=== PATIENT | female | born 2000 | race Caucasian/White ===

== ENCOUNTER → 2019-05-03 15:00 | Outpatient (BNVA) | payer MEDICAID, SELFPAY | PROVIDERS: PCP Social Worker Clinical; Visit Provider Obstetrics & Gynecology | DX: Z34.00 Encounter for supervision of normal first pregnancy, unspecified trimester | CPT/HCPCS: 80307; 84315; 85027; 86592; 86762; 86803; 86850; 86900; 87086; 87340 ==

== ENCOUNTER → 2019-05-06 13:32 | Outpatient (BNVA) | payer MEDICAID, SELFPAY | PROVIDERS: PCP Social Worker Clinical; Visit Provider Obstetrics & Gynecology | DX: O99.210 Obesity complicating pregnancy, unspecified trimester (principal) | CPT/HCPCS: 82950 ==

== ENCOUNTER → 2019-05-13 10:35 | Outpatient (BNVA) | payer MEDICAID, SELFPAY | PROVIDERS: PCP Family Medicine; Visit Provider Obstetrics & Gynecology | DX: Z34.92 Encounter for supervision of normal pregnancy, unspecified, second trimester; R73.09 Other abnormal glucose | CPT/HCPCS: 84315; 87491; 87591 ==

== ENCOUNTER → 2019-05-19 08:18 | Outpatient (BNVA) | payer MEDICAID, SELFPAY | PROVIDERS: PCP Family Medicine; Visit Provider Obstetrics & Gynecology | DX: Z34.90 Encounter for supervision of normal pregnancy, unspecified, unspecified trimester (principal); O99.210 Obesity complicating pregnancy, unspecified trimester | CPT/HCPCS: 82951; 82952 ==

== ENCOUNTER 2019-06-14 19:46 | Emergency (ER) | payer MEDICAID, SELFPAY | END 2019-06-14 19:58 | disposition left against medical advice (07) | PROVIDERS: Emergency Provider Nurse Practitioner Family; PCP Obstetrics & Gynecology | DX: O99.89 Other specified diseases and conditions complicating pregnancy, childbirth and the puerperium (principal); R10.2 Pelvic and perineal pain; Z3A.21 21 weeks gestation of pregnancy; Z53.21 Procedure and treatment not carried out due to patient leaving prior to being seen by health care provider | CPT/HCPCS: 99281 ==

== ENCOUNTER 2019-06-14 19:55 | Outpatient (CLI) | payer MEDICAID, SELFPAY ==
[2019-06-14 20:05] VITALS: RESP 20; TEMP 36.8
[2019-06-14 20:20] VITALS: BP 106/59; PULSE 98
[2019-06-14 21:08] LABS: Basophils % 0.4 %; Eosinophils # 0.1 10^3/uL (0.0-0.8); Hematocrit 31.2 % (37.0-47.0); Hemoglobin 10.1 g/dL (11.5-15.3); Lymphocytes # 2.3 10^3/uL (1.5-6.5); Lymphocytes % 23.4 %; Mean Corpuscular HGB Conc 32.4 g/dL (30.0-36.0); Mean Corpuscular Hemoglobin 28.6 pg (28.0-34.0); Mean Corpuscular Volume 88.4 fL (81-99); Mean Platelet Volume 10.2 fL (7.4-10.4); Monocytes # 0.8 10^3/uL (0.2-0.9); Monocytes % 8.1 %; Neutrophils # 6.4 10^3/uL (1.8-8.0); Neutrophils % 66.3 %; Nucleated Red Blood Cells % 0 %; Platelet Count 334 10^3/cmm (130-400); Red Blood Count 3.53 10^6/uL (4.1-5.3); Red Cell Distribution Width 13.2 % (12.1-15.1); White Blood Count 9.7 10^3/uL (4.5-13.0)
[2019-06-14 21:31] LABS: Anion Gap 16.6 (5-19); Blood Urea Nitrogen 7 mg/dL (6-20); Calcium 9.3 mg/dL (8.5-10.5); Carbon Dioxide 22 mmol/L (22-29); Chloride 99 mmol/L (98-107); Glomerular Filtration Rate 205.6 mL/min (90-130); Glucose 118 mg/dL (65-115); Osmolality Calculated 275 mOsm/kg (285-295); Potassium 3.6 mmol/L (3.5-5.1); Sodium 134 mmol/L (136-145)
[2019-06-14 21:44] LABS: Urine Color Yellow (Yellow); pH Urine 5 (5-7)
[2019-06-14 21:45] LABS: Bilirubin Urine 1+ (NEGATIVE); Blood Urine Neg (Negative); Glucose Urine UA Norm (Normal); Ketones Urine 1+ (Negative); Leukocyte Esterase Urine Negative (Negative); Nitrate Urine Negative (Negative); Protein Urine Neg (Negative); Specific Gravity, Urine 1.025 (1.005-1.030); Urine Appearance Hazy (CLEAR); Urobilinogen Urine 1 mg/dL (Negative)
[2019-06-14 21:46] LABS: Amorphous Sediment Urine 1+; Bacteria Urine 1+; Mucus Urine 1+; RBC Urine 0-4 /hpf (0-2)
[2019-06-14 21:47] LABS: Add Urine Culture? No
[2019-06-14 21:58] VITALS: BMI 42.7
[2019-06-14 22:01] VITALS: BP 116/56; PULSE 91
[2019-06-14] MEDS: diphenhydrAMINE 25 mg Capsule 50 MG PO (22:10)
[2019-06-14] MEDS: promethazine 25 mg Tablet PO (22:10)
[2019-06-14 22:30] VITALS: RESP 16; TEMP 36.8
== END 2019-06-14 22:15 | disposition home or self-care (01) ==
LOC: OPOB 20:05 → OBGYN 22:00 → OPOB 06-15 08:35
PROVIDERS: PCP Obstetrics & Gynecology; Visit Provider Obstetrics & Gynecology
DX: O26.899 Other specified pregnancy related conditions, unspecified trimester (principal); Z3A.00 Weeks of gestation of pregnancy not specified; R10.2 Pelvic and perineal pain
CPT/HCPCS: 36415; 80048; 81001; 83735; 85025; 87086; 99211; Q0169

== ENCOUNTER → 2019-06-17 13:08 | Outpatient (BNVA) | payer MEDICAID, SELFPAY | PROVIDERS: PCP Obstetrics & Gynecology; Visit Provider Obstetrics & Gynecology | DX: Z36.89 Encounter for other specified antenatal screening (principal); Z3A.22 22 weeks gestation of pregnancy | CPT/HCPCS: 76805 ==

== ENCOUNTER → 2019-06-20 12:59 | Outpatient (BNVA) | payer MEDICAID, SELFPAY | PROVIDERS: PCP Obstetrics & Gynecology; Visit Provider Obstetrics & Gynecology | DX: Z01.89 Encounter for other specified special examinations (principal) | CPT/HCPCS: 84315 ==

== ENCOUNTER → 2019-07-05 14:13 | Outpatient (BNVA) | payer MEDICAID, SELFPAY | PROVIDERS: PCP Obstetrics & Gynecology; Visit Provider Obstetrics & Gynecology | DX: O26.899 Other specified pregnancy related conditions, unspecified trimester (principal); R51 Headache | CPT/HCPCS: 82950; 84315 ==

== ENCOUNTER → 2019-07-19 08:12 | Outpatient (BNVA) | payer MEDICAID, SELFPAY | PROVIDERS: PCP Nurse Practitioner Family; Referring Provider Obstetrics & Gynecology; Visit Provider Specialist | DX: G43.711 Chronic migraine without aura, intractable, with status migrainosus (principal); O26.892 Other specified pregnancy related conditions, second trimester; Z3A.26 26 weeks gestation of pregnancy; Z87.891 Personal history of nicotine dependence | CPT/HCPCS: 99203 ==

== ENCOUNTER → 2019-08-09 14:51 | Outpatient (BNVA) | payer MEDICAID, SELFPAY | PROVIDERS: PCP Nurse Practitioner Family; Visit Provider Obstetrics & Gynecology | DX: Z34.00 Encounter for supervision of normal first pregnancy, unspecified trimester (principal) | CPT/HCPCS: 84315; 85027; 86787 ==

== ENCOUNTER 2019-09-16 09:17 | Observation (INO) | payer MEDICAID, SELFPAY ==
[2019-09-16 09:25] VITALS: BP 127/62; PULSE 105
[2019-09-16 09:32] VITALS: BMI 47.3
[2019-09-16 09:59] VITALS: BP 119/76; PULSE 88
[2019-09-16 10:29] VITALS: BP 123/68; PULSE 93
[2019-09-16 10:59] VITALS: BP 118/76; PULSE 90
[2019-09-16 11:33] VITALS: BP 118/76; PULSE 90
[2019-09-16 11:38] VITALS: BP 118/76; PULSE 90
== END 2019-09-16 11:25 | disposition home or self-care (01) ==
PROVIDERS: Admitting Provider Obstetrics & Gynecology; PCP Nurse Practitioner Family; Visit Provider Obstetrics & Gynecology
DX: O62.2 Other uterine inertia (principal); Z3A.00 Weeks of gestation of pregnancy not specified
CPT/HCPCS: 59025; 99211; G0378; G0379

== ENCOUNTER 2019-09-27 07:45 | Inpatient (IN) | payer MEDICAID, SELFPAY ==
[2019-09-27] VITALS (116 sets, daily range): BP systolic 0–170; BP diastolic 0–89; PULSE 72–107; RESP 16–18; TEMP 36.6–37.1; O2SAT 94–100; BMI 48.4
[2019-09-27] MEDS: dextrose 5%-lactated ringers 1,000 ML 500 ML IV (08:08)
[2019-09-27] MEDS: ampicillin 2,000 MG in sodium chloride 0.9% (plus) 50 ML 100 MG IV (08:08)
[2019-09-27] MEDS: betamethasone susp 6 mg/mL 5 mL 12 MG IM (08:09)
[2019-09-27 08:25] LABS: Basophils # 0.1 10^3/uL (0.0-0.1); Basophils % 0.5 %; Eosinophils # 0.1 10^3/uL (0.0-0.8); Eosinophils % 0.8 %; Hematocrit 35.6 % (37.0-47.0); Hemoglobin 11.4 g/dL (11.5-15.3); Lymphocytes # 2.5 10^3/uL (1.5-6.5); Lymphocytes % 26.3 %; Mean Corpuscular Volume 87.5 fL (81-99); Mean Platelet Volume 10.7 fL (7.4-10.4); Monocytes # 0.8 10^3/uL (0.2-0.9); Monocytes % 8.8 %; Neutrophils # 5.9 10^3/uL (1.8-8.0); Neutrophils % 62.3 %; Nucleated Red Blood Cells % 0 %; Platelet Count 272 10^3/cmm (130-400); Red Blood Count 4.07 10^6/uL (4.1-5.3); Red Cell Distribution Width 14.7 % (12.1-15.1); White Blood Count 9.4 10^3/uL (4.5-13.0)
[2019-09-27 10:42] LABS: Nitrazine Paper, PH Positive
--- NOTE | 2019-09-27 11:30 | PC.NURSE ---
pt requesting epidural. orders received, bolus started
[2019-09-27] MEDS: ampicillin 1,000 MG in sodium chloride 0.9% (plus) 50 ML 100 MG IV ×2 (11:45→16:01)
[2019-09-27] MEDS: lactated ringers 1,000 ML 999 ML IV ×3 (11:46→23:44)
--- NOTE | 2019-09-27 12:47 | ANES.PREANE2 ---
Pre-Anesthetic Assessment Pre-Anesthetic Assessment: Height/Weight: Height 1.57 m Weight 120.202 kg Temp Pulse Resp BP 98.8 F 76 18 0/0 09/27/19 11:37 09/27/19 12:12 09/27/19 11:37 09/27/19 12:41 Preop Diagnosis: labor pain Proposed Procedure: epidural Familial anesthetic complications: none Was Beta Rachael taken within 24 hours: Yes Social: Social History: No alcohol and No tobacco Exam: Pre-Anes Outpt Exam: alert, oriented x 3, clear to auscultation bilaterally and regular rate & rhythm Airway: Submandibular: WNL Cervical ROM: WNL MP: 1 Dentition: Other Pulmonary: Pulmonary: None reported CV/HEM: CV/HEM: Anemia : : None reported Hepatic: Hepatic: None reported GI: GI: None reported Metabolic: Metabolic: None reported Musc/skel: Musc/skel: None reported Neuropsych: Neuropsych: Anxiety and Depression Anesthetic Plan: ASA status: 2 Anesthesia: Eval. for regional block and Regional (specify below) Risk of > 500 ml blood loss (7ml/kg in children): No Meds/Allergies Current Medications: Current Medications Generic Name Dose Route Start Last Admin Trade Name Freq PRN Reason Stop Dose Admin Ampicillin Sodium 1,000 mg/ 50 mls @ 100 mls/ hr 09/27/19 11:34 09/27/19 11:45 Sodium Chloride IV 100 mls/hr Q4H DANY Administration Protocol Ampicillin Sodium 2,000 mg/ 50 mls @ 100 mls/ hr 09/27/19 07:30 09/27/19 08:38 Sodium Chloride IV Infused ONCE DANY Infusion Protocol Dextrose/Lactated Ringer's 1,000 mls @ 125 m ls/hr 09/27/19 07:30 09/27/19 11:46 Dextrose 5%-Lact ated Ringers IV Infused .Q8H DANY Infusion PFSH Anesthesia PFSH: Medical History Borderline personality disorder Chronic migraine Currently on propranolol for suppression. She follows with Dr. Patino Major depressive disorder, recurrent severe without psychotic features Not on any medication during the . She follows up with therapy every 1 to 2 weeks with Maribell Menjivar from [facility] Surgical History History of tonsillectomy Family History Unknown Breast cancer Grandmother Hyperlipidemia Maternal Hypertension Maternal Diabetes Maternal Mother Diabetes Grandfather Diabetes Maternal Stroke Maternal Other CAD (coronary artery disease) Cancer Social History (Updated 09/15/19 @ 08:26 by Diane Rivas LPN) Smoking and tobacco status: former smoker Quit status (tobacco): has quit using tobacco Year quit tobacco: 04/2019 Alcohol intake: never History of recent travel: No Female Reproductive History: : 1 Data Anesthesia CBC & Chem 7: 09/27/19 07:40 Other Labs: Laboratory Results - last 48 hr 09/27/19 07:40 WBC 9.4 RBC 4.07 L Hgb 11.4 L Hct 35.6 L MCV 87.5 MCH 28.0 MCHC 32.0 RDW 14.7 Plt Count 272 MPV 10.7 H Neut % (Auto) 62.3 Lymph % (Auto) 26.3 [place] % (Auto) 8.8 Eos % (Auto) 0.8 Baso % (Auto) 0.5 Neut # (Auto) 5.9 Lymph # (Auto) 2.5 [place] # (Auto) 0.8 Eos # (Auto) 0.1 Baso # (Auto) 0.1 Nucleated RBC % (auto) 0 Nucleated RBCs # 0.0 Cardiac Studies: No Data to Display
--- NOTE | 2019-09-27 13:15 | P.ANES_ITS ---
Anesthesia Procedures Procedure/Date: 09/27/19 epidural Procedure Narrative: epidural complete, bolus given, epidural pump initiated with APPLE PEELER OPERATOR education given, vitals taken during procedure using OBIX system and satisfactory throughout, patient admits to decrease pain, report of procedure to OB RN Epidural: Time Out Performed: Yes Consents Signed: Procedure Consent Consent: requested by attending/covering physician, from patient, risks and benefits reviewed and patient agrees to proceed Lumbar Level: L3-L4 Epidural position: sitting Epidural procedure: sterile prep of area, 1% lidocaine to numb the area (3 mL), 18 g needle, negative for paresthesia passed, neg for paresthesia, test dose given, 1.5% xylocaine 1:200k epi (5 mL), 0.2% Ropivacaine bolus ml (5 mL), placed PCEA, no systemic response, sterile dressing applied, L.U.D. no apparent complications and 0.2% Ropiavacaine @ mls/hr (13 mL/hr)
[2019-09-27] MEDS: dextrose 5%-lactated ringers 1,000 ML 125 ML IV (14:06)
[2019-09-27] MEDS: ondansetron 2 mg/ML SDV 2 mL 4 MG IVP (19:24)
[2019-09-27] MEDS: oxytocin 30 UNIT/500 ML BAG IV (19:56)
[2019-09-27] MEDS: ampicillin 1,000 MG in sodium chloride 0.9% (plus) 50 ML 50 MG IV (19:56)
--- NOTE | 2019-09-27 20:54 | PM.OBGYHP ---
Providers/Chief Complaint Admitting Physician: En Sterling MD Primary Care Provider: Chante Pedraza NP Chief Complaint: OB TRIAGE HPI CAREER SERVICES OFFICER History of Present Illness Rose Quintanilla is a 18 year old female 1, para 0 with an uncertain LMP and an EDC of 10/22/2019 based on 15-week ultrasound, which places her at 36-3/7 weeks gestation. Patient presented to labor and delivery today with complaint of leaking of fluid. She was confirmed as being ruptured. She was dominick on her own and slowly progressed through the day. By 16:30 she was 9 cm dilated. She has made no further cervical change despite starting Pitocin augmentation. As result, section was recommended. Patient without complaints at this time. She states she is uncomfortable with contractions. She denied shortness of breath or chest pains. She reports baby has been moving. care is been mainly provided by Dr. Ramirez. Labs 05/03/2019 Blood type: A+ Antibody screen : negative Intake CBC: WBC 11.4 Hgb 12.9 Hct 39.9 MCV 87.7 Platelet 375 Cystic fibrosis: Declined Rubella: Immune Hepatitis B surface antigen: nonreactive Hepatitis C antibody: nonreactive RPR: nonreactive HIV: Declined Drug screen: negative Urine culture: 20,000-30,000 CFU, mixed organisms. Early GTT: 142 05/13/2019 Gonorrhea:negative Chlamydia: negative Pap smear: NA Quad screen: Declined. 05/19/2019 3-hour GTT: 83/148/148/81 (normal) 06/14/2019 CBC: WBC 9.7, Hgb 10.1, Hct 31.2, MCV 88.4, Plt 334. Urine culture: 10-20,000 CFU, mixed organisms. 07/05/2019 GCT: 136 08/09/2019 28 week CBC: WBC 13.0 Hgb 10.7 Hct 33.1 MCV 89.5 Platelet 387 Tesfaye-Zost IGG: <135, negative antibody not detected [Date] GBS: OB Ultrasound Unsure LMP 1. 05/06/2019 ---> 15-6/7 WG ---> EDC 10/22/2019 Performed at [facility]. Breech. FHR 164 bpm. Anterior placenta without previa. Visually normal amniotic fluid volume. PRIVATE EQUITY ANALYST 5.3 cm. 2. 06/17/2019 ---> 22-0/7 WG ---> EDC 10/21/2019. EFW 1 lb 2 oz (500 g) 64%. Performed at [facility]. Consistent with dates. Normal anatomic survey EXCEPT for poor visualization of face and cerebellum. Female. Cephalic. FHR 159 bpm. Anterior fundal placenta without previa. Grade 1. Visually normal amniotic fluid volume. Cervix 4.3 cm. Review of Systems Const: Denies: fever(s) or chills ENMT: Denies: throat pain or nasal congestion Card: Denies: chest pain, palpitations or lightheadedness Resp: Denies: dyspnea, productive cough, non-productive cough or wheezing GI: Denies: abdominal pain, nausea, vomiting, diarrhea or constipation Neuro: Denies: headache(s) or dizziness Kana/Lymph: Denies: easy bruising or easy bleeding Medications/Allergies Home Medications Medication Instructions Recorded Confirmed Last Taken Type Multi 1 tab PO DAILY 06/14/19 09/27/19 09/26/19 12:00 History loratadine 10 mg tablet 10 mg PO DAILY 06/20/19 09/16/19 09/26/19 12:00 History ferrous sulfate 325 mg (65 mg 325 mg PO DAILY #90 tab 08/16/19 09/27/19 09/26/19 12:00 Rx iron) tablet sertraline 50 mg tablet 50 mg PO DAILY #30 tab 09/16/19 09/27/19 09/26/19 12:00 Rx propranolol 10 mg PO BID 09/27/19 09/27/19 09/26/19 22:00 History Allergies Allergy/AdvReac Type Severity Reaction Status Date / Time No Known Allergies Allergy Verified 09/15/19 08:24 PFSH CAREER SERVICES OFFICER PFSH: Medical History Borderline personality disorder Chronic migraine Currently on propranolol for suppression. She follows with Dr. Patino Major depressive disorder, recurrent severe without psychotic features Not on any medication during the . She follows up with therapy every 1 to 2 weeks with Maribell Menjivar from [facility] Surgical History History of tonsillectomy Family History Unknown Breast cancer Grandmother Hyperlipidemia Maternal Hypertension Maternal Diabetes Maternal Mother Diabetes Grandfather Diabetes Maternal Stroke Maternal Other CAD (coronary artery disease) Cancer Social History Smoking and tobacco status: former smoker Quit status (tobacco): has quit using tobacco Year quit tobacco: 04/2019 Alcohol intake: never Substance/Drug Use: never History of recent travel: No Other Female Reproductive History: Hx Age of Menarche: 8 Duration of menses: other (7-10 days) Cycle Length: irregular Menstrual flow: normal/abnormal: normal History History History 1 Term 0 Miscarriages/Ectopic 0 0 Living Children 0 Care WARD Calculator Estimated Delivery Date Method Current WG Current Estimate 10/22/19 Ultrasound #2 36w 3d Other Estimates 10/30/19 LMP (Uncertain) 35w 2d 10/30/19 Ultrasound #1 35w 2d Expected Delivery Route/Plan Vaginal delivery Specific Issues/Plans Obesity Chronic migraine headaches on propranolol for suppression-sees Carey Recurrent severe depression-not on any medication-sees therapist Vitals/I&O/Wt Last Vital Signs Temp 98.4 F 09/27/19 19:10 Pulse 91 09/27/19 20:40 Resp 16 09/27/19 17:32 BP 121/50 09/27/19 20:40 Pulse Ox 100 09/27/19 13:53 09/27/19 09/27/19 09/27/19 06:59 14:59 22:59 Intake Total 2929.167 / 2929.167 738.567 / 3667.734 Balance 2929.167 / 2929.167 738.567 / 3667.734 Weight last 48 hrs Weight 265 lb Physical Exam Const: COMMON NORMALS: no acute distress, average body habitus, alert and well nourished GENERAL APPEARANCE: well developed ORIENTATION/CONSCIOUSNESS: Yes oriented to person, Yes oriented to place and Yes oriented to time Resp: COMMON NORMALS: normal respiratory effort and clear to auscultation bilaterally AUSCULTATION: clear to auscultation bilaterally Cardio: COMMON NORMALS: regular rate, regular rhythm, No gallops present (Cardio), No murmurs present (Cardio) and No rub (Cardio) RATE: regular rate RHYTHM: regular rhythm GI: COMMON NORMALS: Soft to palpation, non-tender, No hepatosplenomegaly present and no masses AUSCULTATION: Yes normoactive bowel sounds PALPATION: Yes Soft to palpation, Yes No hepatosplenomegaly present and No Hernia present : EXTERNAL FEMALE EXAM: No Hernia present OTHER: External genitalia: Normal in appearance with no lesions seen. Anus/perineum: No perineal lesions noted. Urethral meatus: Normal in size and location with no lesions or prolapse noted Urethra: No palpable masses noted. Bladder: No palpable masses noted. Vagina: No palpable masses. Cervix: 9 cm with a david completely surrounding the head. Molding and It of the head present. Head is at a -1 station. Neuro: SENSORIUM/ORIENTATION: Yes alert, Yes oriented to person, Yes oriented to place and Yes oriented to time Psych: COMMON NORMALS: normal affect MOOD & AFFECT: Yes euthymic mood Skin: COMMON NORMALS: no rashes or lesions noted GENERAL SKIN EXAM: no rashes or lesions noted Urinary Catheter Management^: Diaz: Cath Placed During This Visit: yes Reason for Continuing Indwelling Catheter: Acute Urinary Retention or Obstruction Urinary Catheter Date of Insertion: 09/27/19 Urinary Catheter Time of Insertion: 13:30 Data : 09/27/19 07:40 A&P Assessment and plan (1) Arrested active phase of labor: Patient has been at 9 cm dilation for approximately 5 hours. Pitocin augmentation was started approximately an hour to an hour and a half ago and she has made no change. At this point I do not feel that continued use of Pitocin will lead to the cervix progressing to complete dilation. As result I was recommending proceeding to a primary section. Risks of the surgery were discussed with the patient including bleeding to the point of needing a blood transfusion, infection, and injury to intra-abdominal organs including bowel, bladder, blood vessels, nerves, and ureters. Questions were answered. Patient is in agreement with the plan to proceed to section. Status: Acute (2) premature rupture of membranes: Patient presented this morning with ruptured membranes. She reported that her water broke at approximately 05: 40. She was confirmed as being ruptured on arrival. She has been on ampicillin for group B strep prophylaxis due to unknown GBS status. Status: Acute (3) labor in third trimester: Patient reported that contractions started shortly after rupturing membranes. Due to the water being broke and her being 36+ weeks gestation, she was allowed to proceed with labor. Due to prematurity, she had been given betamethasone. Status: Acute Attestations Medical Necessity Statement*: Patient is in labor with premature rupture of membranes at 36 weeks gestation. She will be delivering during this hospitalization. Coding Level of Care Code Acute Cement Truck Driver for Chg Fwd Diagnoses Arrested active phase of labor O62.1 premature rupture of membranes O42.919 labor in third trimester O60.03
[2019-09-27] MEDS: famotidine 20 mg/2 mL INJ IVP (21:04)
[2019-09-27] MEDS: metoclopramide 5 mg/mL SDV 2 mL 10 MG IVP (21:04)
[2019-09-27] MEDS: citric acid-sodium citrate 30 mL UDC PO (21:05)
--- NOTE | 2019-09-27 22:27 | PM.OP ---
Operative Report Date of procedure: September 27, 2019 Pre-op Diagnosis: 1. Arrest of dilation 2. premature rupture of membranes at 36-3/7 weeks gestation 3. labor at 36-3/7 weeks gestation 4. Mental disorder (depression) complicating in third trimester 5. Obesity complicating in third trimester Post-op Diagnosis: 1. Arrest of dilation - delivered 2. premature rupture membranes - delivered 3. labor at 36-3/7 weeks gestation - delivered 4. Mental disorder (depression) complicating - delivered 5. Obesity complicating - delivered 6. Viable female infant Procedure Done: Primary low transverse section Specimens removed/disposition: None Surgeon: Willy Lockwood Lower School Music Teacher: None Anesthesia: Epidural Estimated blood loss (mL): 1,000 IV fluids (mL): 1,100 Complications: None Findings: 1. Viable female cephalic presentation, weighing 7 lbs 6 oz (3345 g) with a length of 21-1/2 inches and Apgars of 9 at 1 minute and 9 at 5 minutes. 2. Three-vessel cord with no loops of nuchal cord noted. 3. Normal-appearing placenta. Condition: stable Brief History: Patient is a 18-year-old white female 1, para 0 with an uncertain LMP and EDC of 11/01/2019 based on 15-week ultrasound, which placed her at 36-3/7 weeks gestation. She presented to labor and delivery this morning with complaint of ruptured membranes. She stated contractions recurred shortly afterwards. She was found to be grossly ruptured. She was dominick on her own and progressed through the day. By around 16:30, she was 9 cm dilated. By approximately 2 hours later she had made no further cervical change and Pitocin augmentation was started. By approximately 20:30 she had made no further progress and decision was made to proceed to a section. She had been on ampicillin due to unknown GBS status. Procedure: Patient was taken to the operating room where epidural anesthesia was further dosed. She was prepped and draped in the usual sterile fashion in a dorsal supine position with a leftward tilt. Diaz catheter and sequential compression boots had been placed prior to starting the case. A Pfannenstiel skin incision was made with a knife and carried down to the underlying fascia with the knife. Fascia was incised in the midline with the knife and extended laterally with Bay scissors. Superior aspect of the fascia was grasped with Clair clamps, elevated, and sharply and bluntly dissected. The inferior aspect of the fascia was grasped with Clair clamps, elevated, and sharply and bluntly dissected. The rectus muscles were in the midline. Peritoneum was sharply entered. Peritoneal incision was extended both superiorly and inferiorly with good visualization of the bladder. Bladder blade was inserted. The vesicouterine peritoneum was tented up and sharply entered. It was extended laterally and the bladder flap was created digitally. Bladder blade was reinserted. A transverse incision was made with the knife in the lower uterine segment. Clear fluid was obtained upon entry into the uterine cavity. The infant's head was delivered and no nuchal cords were noted. The rest of the delivered atraumatically. Nose and mouth were suctioned with bulb suction. Cord was clamped and cut and the was handed off to Dr. Dangelo and the waiting nurses. Cord blood was obtained. Placenta was delivered via uterine massage. Patient received 20 units of Pitocin in the IV fluids. The uterus was exteriorized, but incision was unable to be adequately visualized for repair due to maternal obesity. Uterus was returned to the abdomen. Uterus was cleared of clots and debris. The uterine incision was closed in a running locking fashion using 0 Vicryl suture. The incision was imbricated using 0 Vicryl suture in a horizontal mattress fashion. The incision was inspected and noted to be hemostatic. The uterine incision was irrigated and noted to be hemostatic. The gutters were cleared of clots and blood. The rectus muscles and peritoneum were reapproximated in the midline using interrupted stitches of 2-0 Vicryl suture. The muscle layer was irrigated and noted to be hemostatic. The fascia was reapproximated using 0 Vicryl suture in a running fashion. The subcutaneous layer was irrigated and brought to hemostasis using electrocautery. It was reapproximated using 3-0 plain suture in an interrupted fashion. Skin was reapproximated using 4-0 Vicryl suture in a subcuticular fashion. Steri-Strips were applied. Patient tolerated the procedures well. Sponge, needle, and instrument counts were correct. DRAINS: Diaz catheter POSTOPERATIVE STATUS: The patient was left to recover in satisfactory condition
[2019-09-28] VITALS (14 sets, daily range): BP systolic 105–139; BP diastolic 59–87; PULSE 84–101; RESP 16–18; TEMP 36.7–37; O2SAT 92–98
--- NOTE | 2019-09-28 00:48 | PC.NURSE ---
Patient in OR at this time.
[2019-09-28] MEDS: prenatal vitamin Capsule 1 CAP PO (08:19)
[2019-09-28] MEDS: docusate sodium 100 mg Capsule PO ×2 (08:19→19:24)
[2019-09-28] MEDS: ferrous sulfate EC 325 mg Tablet PO ×2 (08:19→20:44)
[2019-09-28] MEDS: ketorolac 30 mg/mL INJ IVP (08:19)
[2019-09-28] MEDS: sertraline 50 mg Tablet PO (08:19)
[2019-09-28] MEDS: propranolol 20 mg Tablet 10 MG PO ×2 (09:09→19:27)
--- NOTE | 2019-09-28 09:54 | PC.NURSE ---
Fernanda Glover from [facility] called to check up on pt and see how the pt was doing and is sending a worker from [facility] for a courtesy visit, please call Fernanda Glover from discharge. [phone]
--- NOTE | 2019-09-28 10:01 | PM.PN ---
Subjective Subjective: Interval history: Reports doing well at this time. States pain has been well controlled. Denies lightheadedness or dizziness with sitting up in chair. Denies shortness of breath or chest pain. Denies nausea or vomiting. Reports passing flatus. State bleeding has decreased. Vitals/I&O/Wt Last Vital Signs Temp 98.2 F 09/28/19 06:30 Pulse 101 H 09/28/19 06:30 Resp 18 09/28/19 06:30 BP 134/85 09/28/19 06:30 Pulse Ox 95 09/28/19 06:30 09/27/19 09/28/19 09/28/19 22:59 06:59 14:59 Intake Total 738.567 / 3667.734 1100 / 4767.734 Output Total 600 / 600 2250 / 2850 250 / 250 Balance 138.567 / 3067.734 -1150 / 1917.734 -250 / -250 Weight last 48 hrs Weight 265 lb Physical Exam Const: COMMON NORMALS: no acute distress, average body habitus, alert and well nourished GENERAL APPEARANCE: well developed ORIENTATION/CONSCIOUSNESS: Yes oriented to person, Yes oriented to place and Yes oriented to time Resp: COMMON NORMALS: normal respiratory effort and clear to auscultation bilaterally AUSCULTATION: clear to auscultation bilaterally Cardio: COMMON NORMALS: regular rate, regular rhythm, No gallops present (Cardio) and No rub (Cardio) RATE: regular rate RHYTHM: regular rhythm GI: COMMON NORMALS: Soft to palpation, No hepatosplenomegaly present and no masses (except for tender uterus, approx 2 fingerbreaths below umbilicus) AUSCULTATION: Yes normoactive bowel sounds PALPATION: Yes Soft to palpation, Yes Tenderness to palpation present (GI) (lower abdomen), Yes No hepatosplenomegaly present and No Hernia present : EXTERNAL FEMALE EXAM: No Hernia present Extremity: COMMON NORMALS: no calf tenderness Neuro: SENSORIUM/ORIENTATION: Yes alert, Yes oriented to person, Yes oriented to place and Yes oriented to time Psych: COMMON NORMALS: normal affect MOOD & AFFECT: Yes euthymic mood Skin: COMMON NORMALS: no rashes or lesions noted GENERAL SKIN EXAM: no rashes or lesions noted Urinary Catheter Management^: Diaz: Cath Placed During This Visit: yes Reason for Continuing Indwelling Catheter: Accurate Measurement of Urinary Output in Critically Ill Patients Urinary Catheter Date of Insertion: 09/27/19 Urinary Catheter Time of Insertion: 13:30 Data : 09/27/19 07:40 A&P Assessment and plan (1) labor in third trimester with delivery: Status: Acute Qualifiers: Fetus number: single or unspecified fetus Qualified Code(s): O60.14X0 - labor third trimester with delivery third trimester, not applicable or unspecified (2) premature rupture of membranes (PPROM) delivered, current hospitalization: Status: Acute (3) Mental disorder in , delivered: Status: Acute Additional A&P Information Postoperative day 1, status post section Patient doing well overall. Increase acitivty today. May shower. Advance to regular diet. Pain management discussed with patient as Duromorph wears off later today. Attestations Medical Necessity Statement*: Postoperative day 1 after section Coding Level of Care Code Acute Surfacing Machine Operator for Chg Fwd Diagnoses labor in third trimester with delivery O60.14X0 Fetus number: single or unspecified fetus premature rupture of membranes (PPROM) delivered, current hospitalization O42.919 Mental disorder in , delivered O99.344
[2019-09-28 12:41] LABS: Hematocrit 31.7 % (37.0-47.0); Hemoglobin 10.1 g/dL (11.5-15.3); Mean Corpuscular HGB Conc 31.9 g/dL (30.0-36.0); Mean Corpuscular Hemoglobin 28.3 pg (28.0-34.0); Mean Corpuscular Volume 88.8 fL (81-99); Mean Platelet Volume 10.3 fL (7.4-10.4); Platelet Count 262 10^3/cmm (130-400); Red Blood Count 3.57 10^6/uL (4.1-5.3); Red Cell Distribution Width 14.8 % (12.1-15.1); White Blood Count 12.8 10^3/uL (4.5-13.0)
--- NOTE | 2019-09-28 13:04 | ANE.PACU2 ---
Inpatient post-anesthesia follow up: Airway intact: Yes Vital signs: Temperature 98.2 F Pulse Rate 101 Respiratory Rate 18 Blood Pressure 134/85 Pulse Oximetry 95 Oxygen Delivery Me thod Room Air Oxygen Flow Rate Fraction of Inspir ed Oxygen Hydration adequate: No Nausea and vomiting: Yes Pain level: 2 Mental status: Baseline Additional Comments: hasnt' been up and walking, no erythema or signs of infection at site, denies headache
[2019-09-29] MEDS: acetaminophen 325 mg Tablet 650 MG PO (05:58)
--- NOTE | 2019-09-29 07:24 | PC.NURSE ---
This mom has decided to feed formula with a bottle and does not wish to breastfeed at this time.
--- NOTE | 2019-09-29 08:16 | PM.DCS ---
Discharge Providers Date of Admission: 09/27/19 07:45 Date of Discharge: September 29, 2019 Attending Provider at Admission: En Sterling MD Attending Provider at Discharge: Willy Lockwood MD Primary Care Provider: Chante Pedraza NP Diagnoses at Discharge Discharge Diagnosis (1) labor in third trimester with delivery: Status: Acute Qualifiers: Fetus number: single or unspecified fetus Qualified Code(s): O60.14X0 - labor third trimester with delivery third trimester, not applicable or unspecified (2) premature rupture of membranes (PPROM) delivered, current hospitalization: Status: Acute (3) Mental disorder in , delivered: Status: Acute (4) Anemia during , delivered, current hospitalization: Status: Acute Reason for Visit Reason for Visit: OB TRIAGE Hospital Course Hospital Course: Patient is a 18-year-old white female 1, para 0 with uncertain LMP and an EDC of 11/01/2019 based on a 15-week ultrasound, which placed her at 36-3/7 weeks gestation. She presented to labor and delivery with a complaint of rupture of membranes. Contractions had started shortly after rupture membranes. She was found to be grossly ruptured and was dominick with regularly. She continued to contract and progressed through the day. By 16: 30 she was 9 cm dilated but made no further cervical change. Pitocin augmentation was started with still no further change. As a result she was taken for section. She had been treated with ampicillin for GBS prophylaxis due to unknown GBS status. A primary section was performed with the delivery of a viable female weighing 7 lbs 6 oz (3345 g) with a length of 21-1/2 inches and Apgars of 9 at 1 minute and 9 at 5 minutes. Following delivery, patient did well. She received Duramorph in her epidural for pain relief. POSTOPERATIVE DAY 1 She reported doing well. Her pain was well controlled with the Duramorph. She was sitting up in a chair is without lightheadedness or dizziness. She denies shortness of breath or chest pains. She denied nausea or vomiting was tolerating liquids. She had started passing flatus. Her diet was advanced and activities were increased. She was started on oral pain medications later on in the day. POSTOPERATIVE DAY 2 Denies any problems or concerns. Reports pain has been well controlled with ibuprofen and Tylenol. Reports tolerating a regular diet without nausea or vomiting. Denies lightheadedness or dizziness with ambulation. Denies shortness or breath or chest pains. Denies problems with urination. States bleeding has slowed. Physical Exam: See below Plan Patient was anemic during . H/H dropped expected amount after delivery. Continue iron at home. Patient to continue propranolol for headache suppression. Patient to continue Zoloft for treatment of depression. Discharge to home. Discharge instructions discussed with patient. control discussed with patient and she is undecided on type. Discussed no sex until after 6 weeks after delivery. Discussed that it is not uncommon for depression symptoms to worsen after delivery. Follow-up appointments in 2 and 6 weeks. Keep appointment with [facility]. Physical Exam Const: COMMON NORMALS: no acute distress, average body habitus, alert and well nourished GENERAL APPEARANCE: well developed ORIENTATION/CONSCIOUSNESS: Yes oriented to person, Yes oriented to place and Yes oriented to time Resp: COMMON NORMALS: normal respiratory effort and clear to auscultation bilaterally AUSCULTATION: clear to auscultation bilaterally Cardio: COMMON NORMALS: regular rate, regular rhythm, No gallops present (Cardio) and No rub (Cardio) RATE: regular rate RHYTHM: regular rhythm HEART SOUNDS: Murmur heart sound present (2 out of 6 systolic murmur) systolic GI: COMMON NORMALS: Soft to palpation, No hepatosplenomegaly present and no masses (except for palpable uterus, approximately 2 fingerbreaths below umbilicus) INSPECTION: Yes incision (clean, dry, intact with steri-strips) AUSCULTATION: Yes normoactive bowel sounds PALPATION: Yes Soft to palpation, Yes Tenderness to palpation present (GI) (lower abdominal), Yes No hepatosplenomegaly present and No Hernia present : EXTERNAL FEMALE EXAM: No Hernia present Extremity: COMMON NORMALS: no calf tenderness GENERAL: Yes edema (1+ lower extremity edema) Neuro: SENSORIUM/ORIENTATION: Yes alert, Yes oriented to person, Yes oriented to place and Yes oriented to time Psych: COMMON NORMALS: normal affect MOOD & AFFECT: Yes euthymic mood Skin: COMMON NORMALS: no rashes or lesions noted GENERAL SKIN EXAM: no rashes or lesions noted Urinary Catheter Management^: Diaz: Cath Placed During This Visit: yes Reason for Continuing Indwelling Catheter: Accurate Measurement of Urinary Output in Critically Ill Patients Urinary Catheter Date of Insertion: 09/27/19 Urinary Catheter Time of Insertion: 13:30 Discharge Data Data Completed and Pending: Labs from last 24 hours 09/28/19 12:32 WBC 12.8 RBC 3.57 L Hgb 10.1 L Hct 31.7 L MCV 88.8 MCH 28.3 MCHC 31.9 RDW 14.8 Plt Count 262 MPV 10.3 Vitals: Last Vital Signs Temp 98.1 F 09/28/19 20:52 Pulse 84 09/28/19 20:52 Resp 18 09/28/19 20:52 BP 105/69 09/28/19 20:52 Pulse Ox 96 09/28/19 20:52 Discharge Plan Discharge Patient Disposition: Home, Self-Care Condition: Stable Prescriptions: New hydrocodone-acetaminophen 5-325 mg Tablet 1 - 2 tab PO Q6H PRN (Reason: Moderate To Severe Pain) Qty: 15 RF: 0 ibuprofen 800 mg Tablet 800 mg PO TID PRN (Reason: pain) Qty: 40 RF: 0 Continued loratadine [Claritin] 10 mg tablet 10 mg PO DAILY RF: 0 ferrous sulfate 325 mg (65 mg iron) tablet 325 mg PO DAILY Qty: 90 RF: 1 sertraline [Zoloft] 50 mg tablet 50 mg PO DAILY Qty: 30 RF: 2 Multi 27-800 mg-mcg Tablet 1 tab PO DAILY RF: 0 propranolol 10 mg Tablet 10 mg PO BID RF: 0 Discharge Orders: Discharge Order (Routine); Ordered 09/29/19 Ordered By: Willy Lockwood Referrals: Jhoan Ramirez MD [Physician] - 11/10/19 2:45 pm (* Your 6 week follow up appointment is 11/10/2019 at 2:45pm. ) [facility], [Staff Physician] - (Keep scheduled appointment) Willy Lockwood MD [Physician] - 10/12/19 10:00 am (* Your 2 week post appointment is 10/12/2019 at 10:00am. ) Discharge Diet: Regular Discharge Activity: Limit activity as instructed Patient Instructions: Hydrocodone/Acetaminophen (By mouth), Ibuprofen (By mouth), OB [facility], OB Discharge Report, OB Food/Drug Interaction Guide, OB Home Care, OB [facility] Parent Packet, Abnormal Bleeding, Depression Discharge Date/Time: 09/29/19 12:35 Discharge Attestations Time Spent in Discharge Care*: less than 30 min Quality Metrics Clinical Quality Measures During this hospital stay, did patient experience: None Coding Level of Care Code Acute Section [employer] Property Manager for Chg Fwd Exam Detailed Diagnoses labor in third trimester with delivery O60.14X0 Fetus number: single or unspecified fetus premature rupture of membranes (PPROM) delivered, current hospitalization O42.919 Mental disorder in , delivered O99.344 Anemia during , delivered, current hospitalization O99.02
[2019-09-29] MEDS: prenatal vitamin Capsule 1 CAP PO (09:02)
[2019-09-29] MEDS: docusate sodium 100 mg Capsule PO (09:02)
[2019-09-29] MEDS: sertraline 50 mg Tablet PO (09:03)
[2019-09-29] MEDS: ferrous sulfate EC 325 mg Tablet PO (09:03)
[2019-09-29] MEDS: propranolol 20 mg Tablet 10 MG PO (09:07)
[2019-09-29 09:13] VITALS: BP 125/78; PULSE 99; RESP 16; TEMP 36.7; O2SAT 99
--- NOTE | 2019-09-29 12:20 | PC.NURSE ---
Call to DFS worker Fernanda to report pt being discharged, Fernanda reports pt called her already and let h er no. is to go home with mom and Fernanda will follow up at home.
[2019-09-29 12:30] VITALS: BP 122/76; PULSE 89; RESP 16; TEMP 36.6; O2SAT 100
== END 2019-09-29 12:35 | disposition home or self-care (01) | DRG 787 ==
LOC: OPOB 09-28 09:42
PROVIDERS: Obstetrics & Gynecology; Admitting Provider Obstetrics & Gynecology; PCP Nurse Practitioner Family; Visit Provider Obstetrics & Gynecology
PROC: 10D00Z1 Extraction of Products of Conception, Low, Open Approach (ICD-10-PCS; CPT 59514; principal; 2019-09-27 21:00)
DX: O60.14X0 Preterm labor third trimester with preterm delivery third trimester, not applicable or unspecified (principal); F33.2 Major depressive disorder, recurrent severe without psychotic features; O62.1 Secondary uterine inertia; O99.344 Other mental disorders complicating childbirth; O99.214 Obesity complicating childbirth; O99.02 Anemia complicating childbirth; D64.9 Anemia, unspecified; Z3A.36 36 weeks gestation of pregnancy; Z37.0 Single live birth; O75.89 Other specified complications of labor and delivery; F60.3 Borderline personality disorder; G43.709 Chronic migraine without aura, not intractable, without status migrainosus
CPT/HCPCS: 12345; 36415; 51702; 59025; 59409; 83986; 85025; 85027; 96372; 96374; 96375; 98960; 99211; J0290; J0690; J0702; J1885; J2001; J2274; J2405; J2590; J2765; J2795; J3010; J3490; J7030

== ENCOUNTER → 2019-10-13 10:39 | Outpatient (BNVA) | payer MEDICAID, SELFPAY | PROVIDERS: PCP Nurse Practitioner Family; Visit Provider Psychiatry & Neurology Psychiatry | DX: F33.42 Major depressive disorder, recurrent, in full remission (principal) | CPT/HCPCS: 99204 ==

== ENCOUNTER → 2019-12-12 11:52 | Outpatient (BNVA) | payer MEDICAID, SELFPAY | PROVIDERS: PCP Nurse Practitioner Family; Visit Provider Registered Nurse | DX: Z03.89 Encounter for observation for other suspected diseases and conditions ruled out (principal); F33.42 Major depressive disorder, recurrent, in full remission | CPT/HCPCS: 80053; 80061; 82306; 83036; 83540; 83721; 83735; 84443 ==

== ENCOUNTER 2019-12-23 20:00 | Outpatient (CLI) | payer MEDICAID, SELFPAY | END 2019-12-23 20:01 | disposition home or self-care (01) | LOC: SLEEP 12-27 08:24 | PROVIDERS: PCP Nurse Practitioner Family; Visit Provider Registered Nurse | DX: G47.10 Hypersomnia, unspecified (principal) | CPT/HCPCS: 95810 ==

== ENCOUNTER → 2020-03-12 16:28 | Outpatient (BNVA) | payer MEDICAID, SELFPAY | PROVIDERS: PCP Nurse Practitioner Family; Visit Provider Nurse Practitioner Family | DX: R39.9 Unspecified symptoms and signs involving the genitourinary system (principal); Z32.00 Encounter for pregnancy test, result unknown | CPT/HCPCS: 81000; 81025 ==

== ENCOUNTER 2020-04-21 20:24 | Emergency (ER) | payer MEDICAID, SELFPAY ==
[2020-04-21 20:28] VITALS: BP 148/88; PULSE 90; RESP 18; TEMP 36.8; O2SAT 100; BMI 42.0
--- NOTE | 2020-04-21 20:38 | W.ED.PREGNAN ---
HPI - General: Chief complaint: Vaginal Bleeding Stated complaint: possible miscarriage x 7 weeks Time Seen by Provider: 04/21/20 20:34 History of Present Illness: HPI Narrative: Patient is a 19-year-old female comes to the ED with vaginal bleeding. She has been having vaginal bleeding and cramping that started almost 7 days ago. Patient says she was seen at [facility] on April 19 for vaginal bleeding. I told her her hCG quant was 6000 and they performed an ultrasound with transvaginal and did not see any gestational sac in the uterus and no ectopic seen. She was told to come back in a couple days to reevaluate and check hCG levels. Patient says she went back to [place] earlier today and hCG levels were 1000. They then discharged her and told her to follow-up with her OB doctor. She comes here to the ED tonight because she was confused about her discharge from [facility] ED. She says a couple days ago she was having more intense cramping and bleeding and over the past couple days couple days bleeding and cramping is improving. Today in the ED she has minimal cramping and says currently she is bleeding through 1 to 2 pads in a day. She feels like her bleeding is slowing down significantly and cramping pain has decreased significantly as well. Patient was diagnosed with a UTI several days ago at [facility] and is currently taking nitrofurantoin to treat UTI. Date of Last Menstrual Period: 02/12/20 Associated symptoms: Deny abdominal pain, dysuria, headache(s), nausea or vomiting Review of Systems Const: Denies: fever(s), chills or fatigue Eyes: Denies: change in vision or eye discomfort ENMT: Denies: throat pain, odynophagia, nasal discharge or nasal congestion Card: Denies: chest pain, palpitations, edema, swelling of feet/ankles, dyspnea on exertion or orthopnea Resp: Denies: dyspnea, productive cough or non-productive cough GI: Denies: abdominal pain, nausea, vomiting, diarrhea, constipation or hematochezia : Reports: vaginal bleeding and pelvic pain (cramps); Denies: flank pain, dysuria or hematuria Musc: Denies: neck pain, back pain or extremity swelling Skin/Breast: Denies: rash or new lesions Neuro: Denies: headache(s), numbness in extremities or weakness in extremities PFSH ED PFSH: Medical History Borderline personality disorder Chronic migraine Currently on propranolol for suppression. She follows with Dr. Patino Major depressive disorder, recurrent severe without psychotic features Not on any medication during the . She follows up with therapy every 1 to 2 weeks with Maribell Menjivar from [facility] clinic Surgical History History of section, low transverse (09/27/19) PLTCS. Dx: Arrest of dilation. Performed by Dr. Lockwood at [facility]. History of tonsillectomy Family History Unknown Breast cancer Grandmother Hyperlipidemia Maternal Hypertension Maternal Diabetes Maternal Mother Diabetes Grandfather Diabetes Maternal Stroke Maternal Other CAD (coronary artery disease) Cancer Social History Smoking and tobacco status: former smoker Quit status (tobacco): has quit using tobacco Year quit tobacco: 04/2019 Alcohol intake: never History of recent travel: No Current gender identity: Female Female Reproductive History: Date of last menstrual period: 02/12/20 Physical Exam Narrative: EXAM NARRATIVE: Patient is a healthy and happy 19-year-old female that does not appear in any acute distress or pain. She is sitting comfortably on exam bed when entered the room. Const: COMMON NORMALS: no acute distress, patient oriented x3, healthy appearing and alert GENERAL APPEARANCE: cooperative and comfortable NUTRITIONAL APPEARANCE: overweight HENMT: COMMON NORMALS: normocephalic HEAD & SCALP: normocephalic MOUTH: Normal oral and palatal mucosa present THROAT: posterior oropharynx normal and uvula midline Neck/C-Spine: COMMON NORMALS: supple GENERAL: Yes normal visual inspection Resp: COMMON NORMALS: normal respiratory effort, No retractions, No use of accessory muscles and clear to auscultation bilaterally AUSCULTATION: clear to auscultation bilaterally Cardio: COMMON NORMALS: regular rate, regular rhythm, S1 normal heart sound present, S2 normal heart sound present, No gallops present (Cardio), No clicks present (Cardio), No murmurs present (Cardio) and Peripheral pulses 2+ throughout RATE: regular rate RHYTHM: regular rhythm HEART SOUNDS: S1 normal heart sound present and S2 normal heart sound present PERIPHERAL PULSES: Peripheral pulses 2+ throughout GI: COMMON NORMALS: Normal to inspection, nondistended, normoactive bowel sounds present, Soft to palpation, non-tender and no masses PALPATION: Yes Soft to palpation : COMMON NORMALS: Yes no CVA tenderness BLADDER/KIDNEY EXAM: Yes no CVA tenderness Back/Pelvis: COMMON NORMALS: no CVA tenderness Extremity: COMMON NORMALS: normal to inspection Neuro: COMMON NORMALS: patient oriented x3 and moves all extremities SENSORIUM/ORIENTATION: Yes alert Skin: GENERAL SKIN EXAM: dry skin Course Vital Signs: Vital signs: Vital Signs Temperature 98.2 F 04/21/20 20:28 Pulse Rate 90 04/21/20 20:28 Respiratory Rate 18 04/21/20 20:28 Blood Pressure 148/88 04/21/20 20:28 Pulse Oximetry 100 04/21/20 20:28 MDM - OB/Uterine Contractions MDM Narrative: Medical decision making narrative: Patient is a 19-year-old female comes to the ED with vaginal bleeding. Patient said vaginal bleeding started almost a week ago. She was seen at [facility] emergency department several days ago for same complaint and says they did an hCG quant that was about 6000 and performed an ultrasound with transvaginal and no gestational sac identified and no ectopic seen. She was told to come back to the ED couple days later to check hCG levels. Earlier today she went to [facility] emergency department and they checked her hCG level and it was 1000, so they discharged patient and told her to follow-up with PCP. She was also diagnosed with a UTI at [facility] on is currently on nitrofurantoin to treat UTI. Patient was confused about her discharge from [facility] and unsure about care plan, so she came here to get evaluated. Patient says her bleeding and cramping have improved greatly over the past week and she now has only going through 1-2 pads a day. Patient appears in no acute distress upon exam and has no abdominal tenderness. CBC and CMP were unremarkable. hCG quant 863.4. Vitals stable with pulse 90 and temp 98.2. Due to patient still having some mild but decreased bleeding and no other symptoms of a systemic infection or increasing abdominal pain, I placed order with case management for patient to get outpatient ultrasound of the pelvis to check for any retained contents. And [facility] outpatient procedure request form was filled out and put in case management file. Patient was discharged and told that case management will be contacting them in the next several days to set up an appointment for outpatient ultrasound. She was instructed to return to ED if she is having any worsening pain, bleeding, fever, nausea or vomiting. Patient understood and agreed with plan. Lab Data: Attestation: I reviewed the patient's lab results. Labs: Lab Results 04/21/20 04/21/20 Range/Units 21:11 21:11 WBC 10.4 (4.5-13.0) 10^3/ uL RBC 4.59 (4.1-5.3) 10^6/u L Hgb 12.3 (11.5-15.3) g/dL Hct 39.2 (37.0-47.0) % MCV 85.4 (81-99) fL MCH 26.8 L (28.0-34.0) pg MCHC 31.4 (30.0-36.0) g/dL RDW 14.1 (12.1-15.1) % Plt Count 455 H (130-400) 10^3/c mm MPV 9.9 (7.4-10.4) fL Neut % (Auto) 47.5 % Lymph % (Auto) 42.4 % [place] % (Auto) 7.4 % Eos % (Auto) 1.9 % Baso % (Auto) 0.5 % Neut # (Auto) 4.96 (1.8-8.0) 10^3/u L Lymph # (Auto) 4.4 (1.5-6.5) 10^3/u L [place] # (Auto) 0.8 (0.2-0.9) 10^3/u L Eos # (Auto) 0.2 (0.0-0.8) 10^3/u L Baso # (Auto) 0.1 (0.0-0.1) 10^3/u L Nucleated RBC % (a uto) 0 % Nucleated RBCs # 0.0 /100WBC Sodium 137 (136-145) mmol/L Potassium 4.0 (3.5-5.1) mmol/L Chloride 103 (98-107) mmol/L Carbon Dioxide 22 (22-29) mmol/L Anion Gap 16.0 (5-19) BUN 10 (6-20) mg/dL Creatinine 0.5 (0.5-0.9) mg/dL GFR Calculation 157.3 H (90-130) mL/min Glucose 101 (65-115) mg/dL Calculated Osmolal ity 283 L (285-295) mOsm/k g Calcium 9.7 (8.5-10.5) mg/dL Total Bilirubin 0.2 (0.15-1.2) mg/dL AST 11 (0-32) U/L ALT 13 (0-33) U/L Alkaline Phosphata se 85 (35-105) IU/L Total Protein 7.4 (6.6-8.7) g/dL Albumin 4.4 (3.5-5.2) g/dL Globulin 3.0 (1.3-4.6) g/dL Ser , [place] i-Qnt 863.40 mIU/mL Discharge Plan Discharge Patient Disposition: Home Clinical Impression: Vaginal bleeding before 22 weeks gestation Condition: Stable Prescriptions: No Action nitrofurantoin macrocrystal 100 mg capsule 100 mg PO BID 7 Days Qty: 14 RF: 0 risperidone [Risperdal] 0.5 mg tablet 0.5 mg PO DAILY Qty: 30 RF: 0 cholecalciferol (vitamin D3) [D3-50 Cholecalciferol] 1,250 mcg (50,000 unit) capsule 1,250 mcg PO .weekly 90 Days Qty: 13 RF: 1 Discharge Orders: Discharge ED (Routine); Ordered 04/21/20 Ordered By: Greg Anna Referrals: Chante Pedraza FNP [Primary Care Provider] - Discharge Diet: Regular Discharge Activity: Resume usual activity Patient Instructions: Spontaneous Miscarriage (ED) Activity Restrictions/Additional Instructions: Follow-up with medical provider as directed. [facility] scheduling should contact you in the next several days to set up an appoint for an ultrasound. Continue taking all home medications as prescribed. Return to the ER or your medical provider if condition worsens, increased bleeding, increased pain, nausea/vomiting or fever. Please read and understand discharge instructions. If any questions, please ask. Coding Level of Care Code ED [employer] Manager for Peggy Fwd Exam Comprehensive
[2020-04-21 21:17] LABS: Basophils # 0.1 10^3/uL (0.0-0.1); Basophils % 0.5 %; Eosinophils # 0.2 10^3/uL (0.0-0.8); Eosinophils % 1.9 %; Hematocrit 39.2 % (37.0-47.0); Hemoglobin 12.3 g/dL (11.5-15.3); Lymphocytes # 4.4 10^3/uL (1.5-6.5); Lymphocytes % 42.4 %; Mean Corpuscular HGB Conc 31.4 g/dL (30.0-36.0); Mean Corpuscular Hemoglobin 26.8 pg (28.0-34.0); Mean Corpuscular Volume 85.4 fL (81-99); Mean Platelet Volume 9.9 fL (7.4-10.4); Monocytes # 0.8 10^3/uL (0.2-0.9); Monocytes % 7.4 %; Neutrophils # 4.96 10^3/uL (1.8-8.0); Neutrophils % 47.5 %; Nucleated Red Blood Cells % 0 %; Platelet Count 455 10^3/cmm (130-400); Red Blood Count 4.59 10^6/uL (4.1-5.3); Red Cell Distribution Width 14.1 % (12.1-15.1); White Blood Count 10.4 10^3/uL (4.5-13.0)
[2020-04-21 21:48] LABS: Alanine Aminotransferase 13 U/L (0-33); Albumin Level 4.4 g/dL (3.5-5.2); Alkaline Phosphatase 85 IU/L (35-105); Aspartate Amino Transferase 11 U/L (0-32); Blood Urea Nitrogen 10 mg/dL (6-20); Calcium 9.7 mg/dL (8.5-10.5); Carbon Dioxide 22 mmol/L (22-29); Chloride 103 mmol/L (98-107); Glomerular Filtration Rate 157.3 mL/min (90-130); Glucose 101 mg/dL (65-115); Osmolality Calculated 283 mOsm/kg (285-295); Sodium 137 mmol/L (136-145); Total Bilirubin 0.2 mg/dL (0.15-1.2); Total Protein 7.4 g/dL (6.6-8.7)
[2020-04-21] MEDS: HYDROcodone-acetaminophen 5-325 mg Tablet 1 TAB PO (22:07)
--- NOTE | 2020-04-23 16:11 | DCPLANNER ---
marketing strategy manager had message to schedule an out patient pelvic ultrasound. marketing strategy manager faxed order to centralized scheduling, will call for appointment information.
--- NOTE | 2020-04-26 14:26 | DCPLANNER ---
Patient has a follow up appointment scheduled for Thursday, May 04, 2020 at 12:45. Centralized scheduling will call patient with appointment information.
--- NOTE | 2020-05-22 07:59 | DCPLANNER ---
Patient had an out patient ultrasound scheduled - patient did attend appointment.
== END 2020-04-21 22:29 | disposition home or self-care (01) ==
PROVIDERS: Emergency Provider Physician Assistant; PCP Nurse Practitioner Family
DX: O20.9 Hemorrhage in early pregnancy, unspecified (principal); Z3A.00 Weeks of gestation of pregnancy not specified; Z87.891 Personal history of nicotine dependence
CPT/HCPCS: 12345; 80053; 84702; 85025; 99281; 99283

== ENCOUNTER 2020-05-03 10:48 | Outpatient (CLI) | payer MEDICAID, SELFPAY ==
--- NOTE | 2020-05-03 10:54 | US_ITS ---
WS: [id number] ULTRASOUND PELVIS TECHNIQUE: Transabdominal and transvaginal. ULTRASOUND PELVIS TECHNIQUE: Transabdominal. CLINICAL INFORMATION: CHECKED FOR RETAINED PRODUCTS LMP: : No. COMPARISON: None. FINDINGS: Uterus Orientation: Anteverted. Size: 8.3 cm x 5.5 cm x 3.6 cm. Masses: None. Cervix: 3.4 cm. Endometrium: Normal. Endometrium thickness: 0.8 cm. Adnexa: Normal. Right ovary size: 3.5 cm x 1.9 cm x 3.2 cm. Right ovary volume: 10.9 ccm3. Left ovary size: 2.8 cm x 2.3 cm x 2.7 cm. Left ovary volume: 8.9 ccm3 Free fluid: None. Other findings: None. US/US pelvic with transvaginal IMPRESSION: No evidence of retained conception products
== END 2020-05-03 10:49 | disposition home or self-care (01) ==
PROVIDERS: PCP Nurse Practitioner Family; Visit Provider Physician Assistant
DX: Z03.823 Encounter for observation for suspected inserted (injected) foreign body ruled out (principal); X58.XXXA Exposure to other specified factors, initial encounter
CPT/HCPCS: 76830; 76856

== ENCOUNTER → 2020-07-23 10:32 | Outpatient (BNVA) | payer MEDICAID, SELFPAY | PROVIDERS: PCP Nurse Practitioner Family; Visit Provider Nurse Practitioner Family | DX: Z00.00 Encounter for general adult medical examination without abnormal findings (principal); N92.6 Irregular menstruation, unspecified | CPT/HCPCS: 81025 ==

== ENCOUNTER → 2020-09-20 14:42 | Outpatient (BNVA) | payer MEDICAID, SELFPAY | PROVIDERS: PCP Nurse Practitioner Family; Visit Provider Registered Nurse | DX: F33.42 Major depressive disorder, recurrent, in full remission (principal) | CPT/HCPCS: 36415; 80053; 80061; 82306; 83036 ==

== ENCOUNTER → 2020-11-21 14:40 | Outpatient (BNVA) | payer MEDICAID, SELFPAY | PROVIDERS: PCP Nurse Practitioner Family; Visit Provider Registered Nurse | DX: F33.42 Major depressive disorder, recurrent, in full remission (principal); F60.3 Borderline personality disorder | CPT/HCPCS: 82652 ==

== ENCOUNTER → 2021-01-28 12:58 | Outpatient (BNVA) | payer MEDICAID, SELFPAY ==
[2020-12-04 16:35] VITALS: BP 145/86; BMI 42.2
== END ==
PROVIDERS: PCP Nurse Practitioner Family; Visit Provider Counselor Professional
DX: F33.2 Major depressive disorder, recurrent severe without psychotic features (principal); F60.3 Borderline personality disorder
CPT/HCPCS: 90832

== ENCOUNTER → 2021-03-07 14:14 | Outpatient (BNVA) | payer MEDICAID, SELFPAY ==
[2020-12-04 16:35] VITALS: BP 145/86; BMI 42.2
== END ==
PROVIDERS: PCP Nurse Practitioner Family; Referring Provider Nurse Practitioner Family; Visit Provider Specialist
DX: G43.709 Chronic migraine without aura, not intractable, without status migrainosus (principal); F17.210 Nicotine dependence, cigarettes, uncomplicated; F17.290 Nicotine dependence, other tobacco product, uncomplicated; Z3A.01 Less than 8 weeks gestation of pregnancy
CPT/HCPCS: 99214; 99215

== ENCOUNTER 2021-10-15 17:50 | Outpatient (CLI) | payer MEDICAID, SELFPAY ==
[2020-12-04 16:35] VITALS: BP 145/86; BMI 42.2
[2021-10-15] VITALS (7 sets, daily range): BP systolic 103–127; BP diastolic 53–66; PULSE 81–100; RESP 16–18; TEMP 36.6; BMI 47.8
[2021-10-15 18:45] LABS: Bilirubin Urine Neg (Negative); Blood Urine Neg (Negative); Glucose Urine UA Norm (Normal); Ketones Urine Negative (Negative); Leukocyte Esterase Urine Negative (Negative); Nitrate Urine Negative (Negative); Protein Urine Neg (Negative); Urine Appearance Clear (CLEAR); Urine Color Yellow (Yellow); Urobilinogen Urine Norm (Negative); pH Urine 6 (5-7)
[2021-10-15 18:53] LABS: Add Urine Culture? No; Bacteria Urine TRACE /hpf; RBC Urine 0-4 /hpf (0-2); Squamous Epithelial Cell Urine 0-4 /hpf (0-5); WBC Urine 0-4 /hpf (0-5)
[2021-10-15] MEDS: acetaminophen 500 mg Tablet 1000 MG PO (19:05)
== END 2021-10-15 20:03 | disposition home or self-care (01) ==
LOC: OPOB 17:59 → OBGYN 18:00
PROVIDERS: PCP Nurse Practitioner Family; Visit Provider Obstetrics & Gynecology
DX: O26.899 Other specified pregnancy related conditions, unspecified trimester (principal); Z3A.00 Weeks of gestation of pregnancy not specified; R10.9 Unspecified abdominal pain; M54.9 Dorsalgia, unspecified
CPT/HCPCS: 81001; 99211

== ENCOUNTER 2021-11-19 11:32 | Outpatient (CLI) | payer MEDICAID, SELFPAY ==
[2020-12-04 16:35] VITALS: BP 145/86; BMI 42.2
[2021-11-19] VITALS (15 sets, daily range): BP systolic 97–164; BP diastolic 49–72; PULSE 81–114; RESP 16; TEMP 36.8; BMI 47.6
[2021-11-19 12:18] LABS: Actim Prom Positive
[2021-11-19 12:24] LABS: Bilirubin Urine Neg (Negative); Glucose Urine UA Norm (Normal); Ketones Urine Negative (Negative); Nitrate Urine Negative (Negative); Protein Urine Neg (Negative); Urine Appearance Clear (CLEAR); Urine Color Yellow (Yellow); pH Urine 7 (5-7)
[2021-11-19 12:25] LABS: Add Urine Culture? No; Bacteria Urine TRACE /hpf; Blood Urine Trace (Negative); Leukocyte Esterase Urine Negative (Negative); Mucus Urine TRACE /hpf; RBC Urine 0-4 /hpf (0-2); Squamous Epithelial Cell Urine 0-4 /hpf (0-5); Urobilinogen Urine Norm (Negative); WBC Urine 0-4 /hpf (0-5)
--- NOTE | 2021-11-19 13:57 | US_ITS ---
WS: [id number] ULTRASOUND OB FOCUSED HISTORY: Possible ROM, FEDE check COMPARISON: None available. Single intrauterine gestation in cephalic position. Cervix is closed at 5 cm. Placenta is anterior wi th no previa or abruption. heart rate at 150 BPM. Amniotic fluid index: 17.6 cm which is above the 50th percentile. Largest vertical pocket of amniotic fluid is 6.1 cm. US/US OB limited [id number] IMPRESSION: Normal amniotic fluid index.
--- NOTE | 2021-11-19 19:43 | PM.MISC ---
Miscellaneous Note Note: The patient presented to labor and delivery triage due to concern for leakage of fluid on the morning of 11/19/2021. She noted that she felt a gush of fluid and a small amount of trickling afterwards. She had no further leakage following this. She had minimal spotting and so presented to labor and delivery triage for further evaluation. She did note that she had intercourse the night before. Upon exam the patient had a positive active problem. She was however 27 weeks gestation. To confirm this, a nitrazine test was done which was negative. A sterile spec exam did not show pooling in the vaginal vault. Her cervix was visually closed without blood coming from the cervical os. A fern test was done by myself and was found to be negative. An ultrasound was done to check the FEDE and was noted to be 17.6. I had a lengthy discussion with the patient and her significant other regarding the test results. We talked about how the actim PROM was positive, however there is a possibility of false positive with her only being 27 weeks and the test technically being recommended for use after 29 weeks and with the other tests all showing negative. We discussed the possibility of a small, high leak and that if she was ruptured there would be risk for infection. With the other tests coming back negative, I feel that it is safe for her to return home as she is having a few sporadic contractions, however nothing significant in nature. I did offer a transfer to [place] for further evaluation. They declined for now. I gave her precautions that if she has further leakage, fever, worsening abdominal pain or contractions, that these may all be signs that she has indeed had spontaneous rupture of membranes and that she should be evaluated right away. She verbalized understanding and wished to be discharged home. All questions were answered. The patient and her significant other are in agreement with the current plan of care.
== END 2021-11-19 15:11 | disposition home or self-care (01) ==
LOC: OPOB 11:36 → OBGYN 11:37
PROVIDERS: PCP Nurse Practitioner Family; Visit Provider Family Medicine
DX: O46.90 Antepartum hemorrhage, unspecified, unspecified trimester (principal); Z3A.00 Weeks of gestation of pregnancy not specified
CPT/HCPCS: 59025; 76815; 81001; 83986; 84112; 99211

== ENCOUNTER → 2021-11-28 12:00 | Outpatient (BNVA) | payer MEDICAID, SELFPAY ==
[2020-12-04 16:35] VITALS: BP 145/86; BMI 42.2
== END ==
PROVIDERS: PCP Nurse Practitioner Family; Visit Provider Registered Nurse
DX: F31.81 Bipolar II disorder (principal); F33.2 Major depressive disorder, recurrent severe without psychotic features; Z79.899 Other long term (current) drug therapy
CPT/HCPCS: 80053; 80061; 82306; 83036; 85025

== ENCOUNTER 2021-12-30 09:03 | Outpatient (CLI) | payer MEDICAID, SELFPAY ==
[2020-12-04 16:35] VITALS: BP 145/86; BMI 42.2
[2021-12-30] VITALS (7 sets, daily range): BP systolic 111–132; BP diastolic 55–74; PULSE 100–118; RESP 15; BMI 47.8
[2021-12-30] MEDS: metroNIDAZOLE 500 MG Tablet 2000 MG PO (10:39)
== END 2021-12-30 10:55 | disposition home or self-care (01) ==
LOC: OPOB 09:14 → OBGYN 09:15
PROVIDERS: Absent Provider Family Medicine; Family Provider Family Medicine; PCP Nurse Practitioner Family; Visit Provider Family Medicine
DX: O26.893 Other specified pregnancy related conditions, third trimester (principal); N89.8 Other specified noninflammatory disorders of vagina; Z3A.33 33 weeks gestation of pregnancy
CPT/HCPCS: 59025; 83986; 87210; 99211

== ENCOUNTER 2022-01-06 09:22 | Outpatient (CLI) | payer MEDICAID, SELFPAY ==
[2020-12-04 16:35] VITALS: BP 145/86; BMI 42.2
[2022-01-06 09:30] VITALS: BMI 47.8
[2022-01-06 09:37] VITALS: BP 117/68; PULSE 116
[2022-01-06 10:01] VITALS: RESP 17; TEMP 36.2
[2022-01-06 10:10] VITALS: BP 117/68; PULSE 116
== END 2022-01-06 10:10 | disposition home or self-care (01) ==
LOC: OPOB 09:22 → OBGYN 09:23
PROVIDERS: Family Provider Family Medicine; PCP Nurse Practitioner Family; Visit Provider Family Medicine
DX: O26.893 Other specified pregnancy related conditions, third trimester (principal); R10.9 Unspecified abdominal pain; Z3A.34 34 weeks gestation of pregnancy
CPT/HCPCS: 59025; 99211

== ENCOUNTER 2022-01-07 10:20 | Outpatient (CLI) | payer MEDICAID, SELFPAY ==
[2020-12-04 16:35] VITALS: BP 145/86; BMI 42.2
[2022-01-07] VITALS (13 sets, daily range): BP systolic 108–132; BP diastolic 57–71; PULSE 77–111; RESP 17–18; TEMP 36.2–36.7; BMI 47.9
[2022-01-07] MEDS: sodium chloride 0.9% 1,000 ML 999 ML IV ×2 (11:20→12:59)
[2022-01-07] MEDS: ondansetron 2 mg/ML SDV 2 mL 4 MG IVP (11:21)
[2022-01-07 11:24] LABS: Bacteria Urine 2+ /hpf; Bilirubin Urine Neg (Negative); Blood Urine 2+ (Negative); Glucose Urine UA Norm (Normal); Ketones Urine 1+ (Negative); Leukocyte Esterase Urine 2+ (Negative); Nitrate Urine Negative (Negative); Protein Urine Neg (Negative); Specific Gravity, Urine 1.025 (1.005-1.030); Squamous Epithelial Cell Urine TOO NUMEROUS TO CNT /hpf (0-5); Urine Appearance Cloudy (CLEAR); Urine Color Yellow (Yellow); Urobilinogen Urine Neg (Negative); WBC Urine 15-25 /hpf (0-5); pH Urine 6 (5-7)
[2022-01-07 11:25] LABS: Add Urine Culture? No
[2022-01-07 14:13] LABS: Amorphous Sediment Urine 1+ /hpf; Bilirubin Urine Neg (Negative); Blood Urine Neg (Negative); Glucose Urine UA Norm (Normal); Ketones Urine Negative (Negative); Leukocyte Esterase Urine 1+ (Negative); Mucus Urine 1+ /hpf; Nitrate Urine Negative (Negative); Protein Urine Neg (Negative); RBC Urine 0-4 /hpf (0-2); Specific Gravity, Urine 1.025 (1.005-1.030); Urine Appearance Hazy (CLEAR); Urine Color Yellow (Yellow); Urobilinogen Urine 1 mg/dL (Negative); pH Urine 6 (5-7)
[2022-01-07 14:14] LABS: Add Urine Culture? Yes; Bacteria Urine 2+ /hpf
== END 2022-01-07 14:18 | disposition home or self-care (01) ==
LOC: OPOB 10:28 → OBGYN 10:29
PROVIDERS: Family Provider Family Medicine; PCP Nurse Practitioner Family; Visit Provider Family Medicine
DX: O26.893 Other specified pregnancy related conditions, third trimester (principal); K92.0 Hematemesis; Z3A.34 34 weeks gestation of pregnancy
CPT/HCPCS: 59025; 81001; 87086; 87210; 96374; 99211; J2405; J7030

== ENCOUNTER 2022-01-11 12:50 | Outpatient (CLI) | payer MEDICAID, SELFPAY ==
[2020-12-04 16:35] VITALS: BP 145/86; BMI 42.2
[2022-01-11] VITALS (11 sets, daily range): BP systolic 109–131; BP diastolic 61–81; PULSE 93–110; RESP 16; BMI 47.0
--- NOTE | 2022-01-11 13:24 | PC.NURSE ---
1324 Dr. Talavera notified of SVE, FHT, CTX pattern, patient c/o leaking fluid. Orders received for ACTIMPROM 1428 Dr. Talavera notified of ACTIMPROM result. Orders received for transfer. notified he would have to see patient on floor and have transfer summary documented. MD enroute to hospital. 1442 Dr. Talavera notified of SVE. Orders received to continue with transfer. MD states to call transportation to have en route to hospital. MD states ground ambulance is fine. [address] Talavera to notify of ambulance enroute. 1505 This RN requested orders from MD. Orders received for betamethasone 12mg IM 1509 This RN requested orders for terbuteline 0.25 ml subcut. 1534 MD to room to evaluate patient. 1544 Patient off monitors discharged with [facility]. RADAMES RN
[2022-01-11 13:48] LABS: Nitrazine Paper, PH Negative
[2022-01-11 14:15] LABS: Actim Prom Positive
--- NOTE | 2022-01-11 15:33 | P.TS_ITS ---
Transfer Summary Providers Date of Admission: 01/11/2022 Date of Discharge/Transfer: 01/11/22 Attending Provider at Transfer: Nathaniel Talavera MD Primary Care Provider: TANMAY Nuñez Transfer Plans: Anticipated date of transfer: 01/11/22 . Reason for Visit Reason for Visit Leaking Fluid Brief History: This is a 21-year-old at 34w5d that presents with leakage of fluid. Hospital Course Hospital Course Patient was evaluated for possible rupture membranes and was found to be positive. Did start developing contractions and did have a slight change in her cervical dilation from 1 cm to 2 cm after arrival. The patient is at 34 weeks 5 days the patient is considered too high risk to pain and deliver at this facility. Decision was made to transfer to [facility]. Was called and excepted. 1 dose of betamethasone was given. Terbutaline was also given to help with slow contractions for transfer. Patient is to be transferred by ground ambulance. Physical Exam Const: COMMON NORMALS: no acute distress and alert Chest: COMMONS NORMALS: normal inspection of the chest Resp: COMMON NORMALS: normal respiratory effort Extremity: GENERAL: Yes normal exam except as noted Neuro: SENSORIUM/ORIENTATION: Yes alert Psych: COMMON NORMALS: mental status grossly normal TS Data Studies Completed and Pending Labs from last 24 hours 01/11/22 13:49 Insulin-like GF I Positive Laboratory Last Values Insulin-like GF I Positive 01/11/22 13:49 Recent Clincial Data Last Vital Signs Pulse 98 01/11/22 14:59 BP 116/68 01/11/22 14:59 Vital Signs Pulse BP 01/11/22 14:59 98 116/68 01/11/22 14:50 110 H 119/81 01/11/22 14:30 96 131/68 01/11/22 14:16 110 H 115/66 01/11/22 14:00 99 123/67 01/11/22 13:45 109 H 125/72 01/11/22 13:29 93 109/64 01/11/22 13:16 109 H 113/61 Vitals Last Vital Signs Pulse 98 01/11/22 14:59 BP 116/68 01/11/22 14:59 TS Medications Medications Discontinued Medications Betamethasone Acet/Betameth SodPhos (Betamethasone Susp 6 Mg/Ml 5 Ml) 12 mg IM Q24H DANY Stop: 01/11/22 15:31 Terbutaline Sulfate (Terbutaline 1 Mg/Ml Inj) 0.25 mg SUBCUT ONCE ONE Stop: 01/11/22 15:23 Allergies No Known Allergies Allergy (Verified 11/19/21 12:20) Home Medications galcanezumab-gnlm 120 mg/mL subcutaneous pen injector (Emgality Pen) 120 mg SUBCUT .once a month 11/28/21 [History Confirmed 12/26/21] sertraline 50 mg tablet (Zoloft) 50 mg PO DAILY #30 tabs 11/28/21 [Rx Confirmed 12/26/21] famotidine 20 mg tablet (Pepcid) 20 mg PO BID 12/24/21 [History Confirmed 12/26/21] Discharge Plan Discharge Patient Disposition: Home Prescriptions: No Action Emgality Pen 120 mg/mL pen injector 120 mg SUBCUT .once a month sertraline [Zoloft] 50 mg tablet 50 mg PO DAILY Qty: 30 1RF famotidine [Pepcid] 20 mg tablet 20 mg PO BID Diet: As Directed Activity: Limit activity as instructed Transfer Attestations Time Spent in Transfer Care: greater than 30 min Status at Transfer: Cognitive status at transfer: cognitively intact ; Behavioral status at transfer: cooperative ; Quality Metrics Clinical Quality Measures [ No reported AMI, CVA or VTE this stay] Coding Level of Care Code Acute Road Test Examiner for Peggy Corea
[2022-01-11] MEDS: betamethasone susp 6 mg/mL 5 mL 12 MG IM (15:36)
[2022-01-11] MEDS: terbutaline 1 mg/mL INJ 0.25 MG SUBCUT (15:36)
== END 2022-01-11 15:50 | disposition short-term general hospital (02) ==
LOC: OPOB 13:07 → OBGYN 13:08
PROVIDERS: Family Provider Family Medicine; PCP Nurse Practitioner Family; Visit Provider Family Medicine
DX: O26.899 Other specified pregnancy related conditions, unspecified trimester (principal); Z3A.00 Weeks of gestation of pregnancy not specified
CPT/HCPCS: 12345; 83986; 84112; 96372; J0702; J3105

== ENCOUNTER 2022-09-27 12:34 | Emergency (ER) | payer MEDICAID, SELFPAY ==
[2020-12-04 16:35] VITALS: BP 145/86; BMI 42.2
--- NOTE | 2022-09-27 12:44 | ED_ITS ---
HPI - Abdominal Pain General: Chief Complaint: Abdominal Pain Stated Complaint: abd pain Time Seen by Provider: 09/27/22 12:44 Source: patient Mode of arrival: ambulatory History of Present Illness: 21-year-old female presents emergency room complaining of vague abdominal pain mostly on the left upper side. She is not had any fever sweats or chills she has been very nauseous some loose stools as well. No dysuria urgency or f requency no hematochezia melena hematemesis or coffee-ground emesis Tylenol does seem to improve. No chest pain no shortness of breath MD elicited complaint: abdominal pain [facility] ED PFSH: Medical History Bipolar 2 disorder Borderline personality disorder Chronic migraine Currently on propranolol for suppression. She follows with Dr. Patino Major depressive disorder, recurrent severe without psychotic features Not on any medication during the . She follows up with therapy every 1 to 2 weeks with Maribell Menjivar from [facility] clinic Major depressive disorder, recurrent, in full remission with anxious distress Medication management Nicotine dependence Poor compliance with medication Surgical History History of section, low transverse (09/27/19) PLTCS. Dx: Arrest of dilation. [place] Lockwood [place] [facility] [place] History of tonsillectomy Family History Unknown Breast cancer Grandmother Hyperlipidemia Maternal Hypertension Maternal Diabetes Maternal Mother Diabetes Grandfather Diabetes Maternal Stroke Maternal Other CAD (coronary artery disease) Cancer Social History Smoking and tobacco status: current every day smoker (Half a pack a day) e- cigarettes E-Cigarette Details: vaporizer device and with nicotine Quit status (tobacco): has tried quititng Second hand smoke exposure: No Alcohol intake: never Substance/Drug Use: never Adopted: No Caregiver/support person: No Lives independently: Yes Household members: significant other and children Housing: House Marital status: Single Number of children: 1 Number of grandchildren: 0 Highest education level completed: High School Graduate Current occupational status: unemployed Pets and animals: No Leisure activites: music Sexually active: Yes Do you think of yourself as: Straight/Heterosexual Current gender identity: Female Jasmin/Jewish: None Special jasmin needs: No Agree to transfusion: Yes Financial difficulty paying for basics: Hard Female Reproductive History: Para: 1 Spontaneous abortions: Yes (recent) Course Vital Signs: Vital signs: Vital Signs Temperature 98.3 F 09/27/22 12:46 Pulse Rate 95 09/27/22 14:35 Respiratory Rate 18 09/27/22 14:35 Blood Pressure 129/80 09/27/22 14:35 Pulse Oximetry 97 09/27/22 14:35 Oxygen Delivery Me thod Room Air 09/27/22 12:46 MDM - Abdominal Pain Medical Decision Making White count unremarkable CMP otherwise unremarkable abdominal exam no acute findings. Suspect gastroenteritis. At this point no acute abdomen findings on exam UA is negative and urine is negative discharge home pantoprazole 40 daily promethazine as needed for nausea and vomiting liquid diet for 24 to 48 hours advance as tolerated Medical Records I reviewed the patient's medical records. Lab Data I reviewed the patient's lab results. 09/27/22 13:10 09/27/22 13:10 Labs/Radiology: Laboratory Results WBC 8.4 10^3/uL (4.0-10.0) 09/27/22 13:10 RBC 5.28 10^6/uL (4.1-5.3) 09/27/22 13:10 Hgb 12.8 g/dL (11.5-15.3) 09/27/22 13:10 Hct 42.1 % (37.0-47.0) 09/27/22 13:10 MCV 79.7 fl (81-99) L 09/27/22 13:10 MCH 24.2 pg (28.0-34.0) L 09/27/22 13:10 MCHC 30.4 g/dL (30.0-36.0) 09/27/22 13:10 RDW 16.0 % (12.1-15.1) H 09/27/22 13:10 Plt Count 488 10^3/cmm (130-400) H 09/27/22 13:10 MPV 9.7 fL (7.4-10.4) 09/27/22 13:10 Neut % (Auto) 57.6 % 09/27/22 13:10 Lymph % (Auto) 30.1 % 09/27/22 13:10 [place] % (Auto) 10.0 % 09/27/22 13:10 Eos % (Auto) 0.8 % 09/27/22 13:10 Baso % (Auto) 1.0 % 09/27/22 13:10 Neut # (Auto) 4.84 10^3/uL (1.8-7.7) 09/27/22 13:10 Lymph # (Auto) 2.5 10^3/uL (0.8-4.8) 09/27/22 13:10 [place] # (Auto) 0.8 10^3/uL (0.2-0.9) 09/27/22 13:10 Eos # (Auto) 0.1 10^3/uL (0.0-0.8) 09/27/22 13:10 Baso # (Auto) 0.1 10^3/uL (0.0-0.1) 09/27/22 13:10 Nucleated RBC % (auto) 0 % 09/27/22 13:10 Nucleated RBCs # 0.0 /100WBC 09/27/22 13:10 Sodium 133 mmol/L (136-145) L 09/27/22 13:10 Potassium 3.7 mmol/L (3.5-5.1) 09/27/22 13:10 Chloride 99 mmol/L (98-107) 09/27/22 13:10 Carbon Dioxide 22 mmol/L (22-29) 09/27/22 13:10 Anion Gap 15.7 (5-19) 09/27/22 13:10 BUN 8 mg/dL (6-20) 09/27/22 13:10 Creatinine 0.7 mg/dL (0.5-0.9) 09/27/22 13:10 GFR Calculation 104.6 mL/min (90-130) 09/27/22 13:10 Glucose 74 mg/dL (65-115) 09/27/22 13:10 Calculated Osmolality 273 mOsm/kg (285-295) L 09/27/22 13:10 Calcium 9.4 mg/dL (8.5-10.5) 09/27/22 13:10 Total Bilirubin 0.2 mg/dL (0.15-1.2) 09/27/22 13:10 AST 16 U/L (0-32) 09/27/22 13:10 ALT 22 U/L (0-33) 09/27/22 13:10 Alkaline Phosphatase 90 U/L (35-105) 09/27/22 13:10 Total Protein 8.0 g/dL (6.6-8.7) 09/27/22 13:10 Albumin 4.8 g/dL (3.5-5.2) 09/27/22 13:10 Globulin 3.2 g/dL (1.3-4.6) 09/27/22 13:10 Lipase 30 U/L (13-60) 09/27/22 13:10 HCG, Qual Negative (Negative) 09/27/22 13:10 Urine Color Straw (Yellow) 09/27/22 13:09 Urine Appearance Cloudy (CLEAR) A 09/27/22 13:09 Urine pH 8 (5-7) H 09/27/22 13:09 Ur Specific [place] 1.020 (1.005-1.030) 09/27/22 13:09 Urine Protein Neg (Negative) 09/27/22 13:09 Urine Glucose (UA) Norm (Normal) 09/27/22 13:09 Urine Ketones Negative (Negative) 09/27/22 13:09 Urine Blood Neg (Negative) 09/27/22 13:09 Urine Nitrate Negative (Negative) 09/27/22 13:09 Urine Bilirubin Neg (Negative) 09/27/22 13:09 Prot Sulfosalicylic Acd Negative (Negative) 09/27/22 13:09 Urine Urobilinogen Norm mg/dL (Negative) 09/27/22 13:09 Ur Leukocyte Esterase 1+ (Negative) H 09/27/22 13:09 Urine RBC None /hpf (0-2) 09/27/22 13:09 Urine WBC 5-10 /hpf (0-5) H 09/27/22 13:09 Ur Squamous Epith Cells 5-10 /hpf (0-5) H 09/27/22 13:09 Amorphous Sediment 3+ /hpf 09/27/22 13:09 Urine Bacteria Trace /hpf (NONE) 09/27/22 13:09 Discharge Plan Discharge Patient Disposition: Home Clinical Impression: Abdominal pain Condition: Stable Prescriptions: New ondansetron HCl 4 mg tablet 4 mg PO Q6H PRN (Reason: nausea and vomiting) Qty: 20 0RF pantoprazole 40 mg tablet,delayed release (DR/EC) 40 mg PO DAILY Qty: 30 0RF No Action Abilify Maintena 400 mg suspension,extended rel recon 400 mg IM Q28D Qty: 1 5RF Rx Instructions: 4TH OF EACH MONTH topiramate [Topamax] 100 mg tablet 100 mg PO DAILY Qty: 30 1RF Nexplanon 68 mg Implant See Rx Instructions .ROUTE .COMPLEX Rx Instructions: 68 mg subdermally EVERY FOUR YEARS Discharge Orders: Discharge ED (Routine); Ordered 09/27/22 Ordered By: Deepak Martinez Referrals: Chante Pedraza FNP [Primary Care Provider] - Discharge Diet: Clear Liquid Discharge Activity: Increase activity as tolerated Patient Instructions: Abdominal Pain (ED), Opioid Safety, Pain Management Activity Restrictions/Additional Instructions: You are seen today in the emergency room for abdominal pain your laboratory studies were normal. Recommend you see pantoprazole daily as you are does try as needed. Clear liquid diet for 24 to 48 hours advance as tolerated. if pain is persisting follow-up with your primary care doctor. Coding Level of Care Code ED Assistant Cross Country Coach for Peggy Corea
[2022-09-27 12:46] VITALS: BP 161/81; PULSE 100; RESP 18; TEMP 36.8; O2SAT 100; BMI 48.0
[2022-09-27 13:31] LABS: Basophils # 0.1 10^3/uL (0.0-0.1); Eosinophils # 0.1 10^3/uL (0.0-0.8); Eosinophils % 0.8 %; Hematocrit 42.1 % (37.0-47.0); Hemoglobin 12.8 g/dL (11.5-15.3); Lymphocytes # 2.5 10^3/uL (0.8-4.8); Lymphocytes % 30.1 %; Mean Corpuscular HGB Conc 30.4 g/dL (30.0-36.0); Mean Corpuscular Hemoglobin 24.2 pg (28.0-34.0); Mean Corpuscular Volume 79.7 fl (81-99); Mean Platelet Volume 9.7 fL (7.4-10.4); Monocytes # 0.8 10^3/uL (0.2-0.9); Neutrophils # 4.84 10^3/uL (1.8-7.7); Neutrophils % 57.6 %; Nucleated Red Blood Cells % 0 %; Platelet Count 488 10^3/cmm (130-400); Red Blood Count 5.28 10^6/uL (4.1-5.3); White Blood Count 8.4 10^3/uL (4.0-10.0)
[2022-09-27 13:43] LABS: HCG, Serum Qual Negative (Negative)
[2022-09-27 13:47] LABS: Alanine Aminotransferase 22 U/L (0-33); Albumin Level 4.8 g/dL (3.5-5.2); Alkaline Phosphatase 90 U/L (35-105); Anion Gap 15.7 (5-19); Aspartate Amino Transferase 16 U/L (0-32); Blood Urea Nitrogen 8 mg/dL (6-20); Calcium 9.4 mg/dL (8.5-10.5); Carbon Dioxide 22 mmol/L (22-29); Chloride 99 mmol/L (98-107); Globulin 3.2 g/dL (1.3-4.6); Glomerular Filtration Rate 104.6 mL/min (90-130); Glucose 74 mg/dL (65-115); Lipase 30 U/L (13-60); Osmolality Calculated 273 mOsm/kg (285-295); Potassium 3.7 mmol/L (3.5-5.1); Sodium 133 mmol/L (136-145); Total Bilirubin 0.2 mg/dL (0.15-1.2)
[2022-09-27 13:56] LABS: Urine Appearance Cloudy (CLEAR); Urine Color Straw (Yellow); pH Urine 8 (5-7)
[2022-09-27 13:57] LABS: Add Urine Microscopic? YES; Bilirubin Urine Neg (Negative); Blood Urine Neg (Negative); Glucose Urine UA Norm (Normal); Ketones Urine Negative (Negative); Leukocyte Esterase Urine 1+ (Negative); Nitrate Urine Negative (Negative); Protein Urine Neg (Negative); Sulfosalicylic Acid Urine Negative (Negative); Urobilinogen Urine Norm (Negative)
[2022-09-27 13:58] LABS: Add Urine Culture? No; Amorphous Sediment Urine 3+ /hpf; Bacteria Urine TRACE /hpf
[2022-09-27 14:35] VITALS: BP 129/80; PULSE 95; RESP 18; O2SAT 97
== END 2022-09-27 14:37 | disposition home or self-care (01) ==
PROVIDERS: Physician Assistant; Emergency Provider Family Medicine; PCP Nurse Practitioner Family
DX: R10.12 Left upper quadrant pain (principal); F17.290 Nicotine dependence, other tobacco product, uncomplicated
CPT/HCPCS: 36415; 80053; 81001; 83690; 84703; 85025; 99283

== ENCOUNTER → 2022-11-12 15:51 | Outpatient (BNVA) | payer MEDICAID, SELFPAY ==
[2020-12-04 16:35] VITALS: BP 145/86; BMI 42.2
== END ==
PROVIDERS: PCP Nurse Practitioner Family; Visit Provider Registered Nurse
DX: F31.81 Bipolar II disorder (principal); Z79.899 Other long term (current) drug therapy
CPT/HCPCS: 80053; 80061; 82306; 82607; 83036; 83540; 84443; 85025

== ENCOUNTER 2022-11-27 06:52 | Day surgery (SDC) | payer MEDICAID, SELFPAY ==
[2020-12-04 16:35] VITALS: BP 145/86; BMI 42.2
[2022-11-26 08:25] VITALS: BMI 51.9
[2022-11-27] VITALS (11 sets, daily range): BP systolic 101–153; BP diastolic 77–98; PULSE 70–104; RESP 15–20; TEMP 36.1–36.6; O2SAT 98–100
--- NOTE | 2022-11-27 04:17 | W.PM.OPSFHP ---
Same Day Surgery H&P Indication for Procedure/HPI DATE OF PROCEDURE: November 27, 2022 CHIEF COMPLAINT/INDICATIONFOR SURGICAL PROCEDURE: Desires permanent sterilization PREOP DIAGNOSIS: Desires permanent sterilization PLANNED PROCEDURE: Operation Date: 11/27/22 08:50 Proposed Procedures p Laparoscopic bilateral partial salpingectomy 51857, Intrauterine device removal 54259, Z30.2(Bilateral) - Peter Olvera MD s Removal Of Interuterine Device(Not Applicable) - Peter Olvera MD 21 y.o. SA2 Has Nexplanon since last delivery 9 months ago Wants permanent sterilization States she does not like reversible control States ? set? on having permanent sterilization, bilateral tubal ligation Refuses OCs, nuvaring, DMPA, IUD, and other reversible types of control Now scheduled for laparoscopic bilateral partial salpingectomy PMHx: migraines Anxiety Depression Bipolar disorder PSHx: c-sections x two T&A Medications/Allergies* Home Medications Medication Instructions Recorded Confirmed Type etonogestrel 68 mg subdermal See Rx Instructions .Route .COMPLEX 09/27/22 11/26/22 History implant (Nexplanon) topiramate 50 mg tablet (Topamax) 50 mg PO .1/2 at bedtime 11/12/22 11/26/22 History trazodone 150 mg tablet 100 mg PO DAILY 11/12/22 11/26/22 History cyclobenzaprine 10 mg tablet 10 mg PO TID PRN muscle relaxant 11/26/22 11/26/22 History Allergies/Adverse Reactions Allergy/AdvReac Type Severity Reaction Status Date / Time No Known Allergies Allergy Verified 10/30/22 15:25 Pertinent History/Comorbid Conditions* Medical History (Updated 10/15/22 @ 22:22 by Peter Olvera MD) Bipolar 2 disorder Borderline personality disorder Chronic migraine Major depressive disorder, recurrent severe without psychotic features Not on any medication during the . She follows up with therapy every 1 to 2 weeks with Maribell Menjivar from [facility] Major depressive disorder, recurrent, in full remission with anxious distress Medication management Nicotine dependence Poor compliance with medication Surgical History (Updated 10/12/19 @ 18:55 by Willy Lockwood MD) History of section, low transverse (09/27/19) PLTCS. Dx: Arrest of dilation. [place] Lockwood [place] [facility] [place] [facility] [place] History of tonsillectomy Family History (Updated 07/19/19 @ 08:28 by Liz Carter LPN) Diabetes Grandmother Maternal Mother Grandfather Maternal CAD (coronary artery disease) Hyperlipidemia Grandmother Maternal Breast cancer Unknown Cancer Hypertension Grandmother Maternal Stroke Grandfather Maternal Social History Smoking and tobacco status: current every day smoker (Half a pack a day) e-cigarettes E-Cigarette Details: vaporizer device and with nicotine Quit status (tobacco): has tried quititng Second hand smoke exposure: No Alcohol intake: never Substance/Drug Use: never Adopted: No Caregiver/support person: No Lives independently: Yes Household members: significant other and children Housing: House Marital status: Single Number of children: 1 Number of grandchildren: 0 Highest education level completed: High School Graduate Current occupational status: unemployed Pets and animals: No Leisure activites: music Sexually active: Yes Do you think of yourself as: Straight/Heterosexual Current gender identity: Female Jasmin/Orthodoxy: None Special jasmin needs: No Agree to transfusion: Yes Financial difficulty paying for basics: Hard Pertinent Exam Findings alert, oriented x 3, clear to auscultation bilaterally and regular rate & rhythm Recommendations Surgery/Procedure today Coding Level of Care Code Acute Code for Chg Fwd Diagnoses Time Spent (min) 20
[2022-11-27 07:15] LABS: OR HCG Qualitative Urine Negative (Negative)
[2022-11-27] MEDS: sodium chloride 0.9% 1,000 ML 30 ML IV (07:17)
--- NOTE | 2022-11-27 07:35 | W.PM.OPSUD ---
Surgery/Procedure H&P Update DATE OF PROCEDURE: November 27, 2022 DATE H&P PERFORMED: 11/27/22 H&P UPDATE INFORMATION: I have reviewed H&P completed within last 30 days, I have examined patient prior to procedure and No changes to prior documentation PREOP DIAGNOSIS: desires permanent sterilization PLANNED PROCEDURE: Operation Date: 11/27/22 08:50 Proposed Procedures p Laparoscopic bilateral partial salpingectomy 96076, Intrauterine device removal 29324, Z30.2(Bilateral) - Peter Olvera MD s Removal Of Interuterine Device(Not Applicable) - Peter Olvera MD
--- NOTE | 2022-11-27 07:46 | ANES.PREANE2 ---
Pre-Anesthetic Assessment Height/Weight: Height 1.57 m Weight 128.82 kg Temp Pulse Resp BP Pulse Ox O2 Del Method 97.2 F L 104 H 17 153/82 100 Room Air 11/27/22 07:08 11/27/22 07:08 11/27/22 07:08 11/27/22 07:08 11/27/22 07:08 11/27/22 07:08 Preop Diagnosis: desires permanent sterilization Operation Date: 11/27/22 08:50 Proposed Procedures p Laparoscopic bilateral partial salpingectomy 15851, Intrauterine device removal 11115, Z30.2(Bilateral) - Peter Olvera MD s Removal Of Interuterine Device(Not Applicable) - Peter Olvera MD Familial anesthetic complications: None Was Beta Rachael taken within 24 hours: N/A Was Clonidine taken within 24 hours: N/A Last intake: Intake Last Liquid Date 11/26/22 Last Liquid Time 18:00 Last Solid Date 11/26/22 Last Solid Time 18:00 Social No alcohol and No tobacco vapes Exam alert, oriented x 3, clear to auscultation bilaterally and regular rate & rhythm Airway Mallampati: Class III Dentition: full Metabolic Morbid Obesity Anesthetic Plan ASA status: 2 Anesthesia: General Risk of > 500 ml blood loss (7ml/kg in children): No Medications/Allergies Home Medications Medication Instructions Recorded Confirmed Last Taken Type etonogestrel 68 mg subdermal See Rx Instructions .Route .COMPLEX 09/27/22 11/26/22 Unknown History implant (Nexplanon) aripiprazole 400 mg intramuscular 400 mg IM Q28D #1 ea 11/11/22 11/26/22 Unknown Rx suspension,extended release (Abilify Maintena) topiramate 50 mg tablet (Topamax) 50 mg PO .1/2 at bedtime 11/12/22 11/27/22 11/26/22 History trazodone 150 mg tablet 100 mg PO DAILY 11/12/22 11/27/22 11/26/22 History doxepin 25 mg capsule 25 mg PO DAILY #30 caps 11/19/22 11/27/22 11/26/22 Rx cyclobenzaprine 10 mg tablet 10 mg PO TID PRN muscle relaxant 11/26/22 11/26/22 11/25/22 History Allergies Allergy/AdvReac Type Severity Reaction Status Date / Time No Known Allergies Allergy Verified 11/27/22 07:06 Current Medications Generic Name Dose Route Start Last Admin Trade Name Loyda PRN Reason Stop Dose Admin Sodium Chloride 1,000 mls @ 30 mls/hr 11/27/22 07:00 11/27/22 07:17 Sodium Chloride 0.9% IV 11/28/22 06:59 30 mls/hr .Q24H DANY Administration PFSH Anesthesia Medical History Bipolar 2 disorder Borderline personality disorder Chronic migraine Major depressive disorder, recurrent severe without psychotic features Not on any medication during the . She follows up with therapy every 1 to 2 weeks with Maribell Menjivar from [facility] Major depressive disorder, recurrent, in full remission with anxious distress Medication management Nicotine dependence Poor compliance with medication Surgical History History of section, low transverse (09/27/19) PLTCS. Dx: Arrest of dilation. Performed by Dr. Lockwood at [facility] [place]. History of tonsillectomy Family History Unknown Breast cancer Grandmother Hyperlipidemia Maternal Hypertension Maternal Diabetes Maternal Mother Diabetes Grandfather Diabetes Maternal Stroke Maternal Other CAD (coronary artery disease) Cancer Social History Smoking and tobacco status: current every day smoker (Half a pack a day) e-cigarettes E-Cigarette Details: vaporizer device and with nicotine Quit status (tobacco): has tried quititng Second hand smoke exposure: No Alcohol intake: never Substance/Drug Use: never Adopted: No Caregiver/support person: No Lives independently: Yes Household members: significant other and children Housing: House Marital status: Single Number of children: 1 Number of grandchildren: 0 Highest education level completed: High School Graduate Current occupational status: unemployed Pets and animals: No Leisure activites: music Sexually active: Yes Do you think of yourself as: Straight/Heterosexual Current gender identity: Female Jasmin/Hindu: None Special jasmin needs: No Agree to transfusion: Yes Financial difficulty paying for basics: Hard Female Reproductive History Para: 1 Spontaneous abortions: Yes (recent) Data Anesthesia Cardiac Studies: No Data to Display
--- NOTE | 2022-11-27 09:35 | ANE.PACU2 ---
Inpatient post-anesthesia follow up: Airway intact: Yes Vital signs: Temperature 97.3 F Pulse Rate 72 Respiratory Rate 20 Blood Pressure 141/81 Pulse Oximetry 99 Oxygen Delivery Me thod Room Air Oxygen Flow Rate Fraction of Inspir ed Oxygen Hydration adequate: Yes Nausea and vomiting: No Pain level: 1 Mental status: Baseline
[2022-11-27] MEDS: oxyCODONE-APAP 5-325 mg Tablet 1 TAB PO (10:04)
--- NOTE | 2022-11-27 10:32 | SUR.PHASEII ---
1020 Prescription for Percocet 7.5/325 mg not available and can't order,from [facility] call placed to dr Olvera and he will send prescription for Percocet to [facility] instead,spoke with Liz at [facility] to notify of this change and verbalized understanding
--- NOTE | 2022-11-27 11:30 | P.OP_ITS ---
Operative Report Date of procedure: November 27, 2022 Pre-op diagnosis: Preop Diagnosis desires permanent sterilization; removal of nexplanon Post-op diagnosis: same Post-op findings: normal uterus, tubes, and ovaries intact Nexplanon, removed and discarded Procedure done: laparoscopic bilateral partial salpingectomy removal of Nexplanon Specimens removed/disposition: bilateral partial fallopian tube segments, sent to pathology Nexplanon, discarded Surgeon: Peter Olvera MD Anesthesia: General Estimated blood loss (mL): 5 Complications: none Condition: stable Disposition: PACU Brief History: 21 y.o. desires permanent sterilization and removal of nexplanon Procedure: Informed consent was obtained. The patient was taken to the OR and placed on the table. General endotracheal anesthesia was induced. The patient was then placed in dorsolithotomy position. The abdomen and perineum were then prepped and draped in the usual fashion. A left upper quadrant entry was chosen due to patient?s body habitus. A 2 mm incision was made in the left upper quadrant 3 cm below the left costal margin. A Veress needle was inserted into the abdominal cavity. After adequate pneumoperitoneum was achieved, the Veress needle was removed. A 5 mm subumbilical skin incision was made. A 5 mm trocar with sheath was then inserted into the peritoneal cavity under direct visualization with the laparoscope. After confirming intraperitoneal position, pneumoperitoneum was achieved. Two separate 5 mm incisions were made in the right and left mid- quadrants. 5 mm trocars with sheaths were then inserted into the peritoneal cavity under direct visualization with the laparoscope. Normal uterus, tubes, and ovaries were seen. The right fallopian tube was then identified to its fimbrial end. Starting at the fimbrial end, the mesosalpinx was then coagulated and cut using the Endoseal. A 3-4 cm portion of the right fallopian tube was excised and removed via one of the ports. This was sent to pathology. There was no bleeding seen. Similarly, the left fallopian tube was identified to its fimbrial end. A 3-4 cm portion of the left fallopian tube was excised and removed, sent to pathology. There was no bleeding. All instruments were then removed from the peritoneal cavity after the pneumoperitoneum was allowed to escape. The skin incisions were closed using 3- O chromic in subcuticular fashion. Dermabond was applied. Attention was then turned to the medial aspect of the left upper arm. The area was cleaned with betadine. A 1 cm incision was made over the area of the Nexplanon implant. Nexplanon was removed complete and intact, then discarded. The incision was closed with dermabond. The patient was then placed supine and awakened, taken the the PACU in good condition.
== END 2022-11-27 10:45 | disposition home or self-care (01) ==
PROVIDERS: PCP Nurse Practitioner Family; Visit Provider Obstetrics & Gynecology
PROC: (CPT 58661; principal; 2022-11-27 08:40)
PROC: (CPT 58301; 2022-11-27 08:40)
DX: Z30.2 Encounter for sterilization (principal); E66.01 Morbid (severe) obesity due to excess calories; Z68.43 Body mass index [BMI] 50.0-59.9, adult; F17.290 Nicotine dependence, other tobacco product, uncomplicated; Z79.899 Other long term (current) drug therapy
CPT/HCPCS: 58301; 58661; 81025; 84703; 88302; J1100; J2405; J2704; J2710; J3010; J3490; J7030

== ENCOUNTER → 2023-01-13 10:18 | Outpatient (BNVA) | payer MEDICAID, SELFPAY ==
[2020-12-04 16:35] VITALS: BP 145/86; BMI 42.2
== END ==
PROVIDERS: PCP Nurse Practitioner Family; Visit Provider Nurse Practitioner
DX: N92.0 Excessive and frequent menstruation with regular cycle (principal); G47.34 Idiopathic sleep related nonobstructive alveolar hypoventilation; E66.9 Obesity, unspecified
CPT/HCPCS: 84443; 85025

== ENCOUNTER → 2023-01-20 14:42 | Outpatient (BNVA) | payer MEDICAID, SELFPAY ==
[2020-12-04 16:35] VITALS: BP 145/86; BMI 42.2
== END ==
PROVIDERS: PCP Nurse Practitioner; Visit Provider Nurse Practitioner
DX: R69 Illness, unspecified (principal); J20.9 Acute bronchitis, unspecified
CPT/HCPCS: 87426; 87880

== ENCOUNTER → 2023-02-09 10:22 | Outpatient (BNVA) | payer MEDICAID, SELFPAY ==
[2020-12-04 16:35] VITALS: BP 145/86; BMI 42.2
== END ==
PROVIDERS: PCP Nurse Practitioner; Visit Provider Nurse Practitioner
DX: R03.0 Elevated blood-pressure reading, without diagnosis of hypertension (principal); I10 Essential (primary) hypertension; Z09 Encounter for follow-up examination after completed treatment for conditions other than malignant neoplasm
CPT/HCPCS: 80053; 84443; 85025

== ENCOUNTER → 2023-02-25 09:03 | Outpatient (BNVA) | payer MEDICAID, SELFPAY ==
[2020-12-04 16:35] VITALS: BP 145/86; BMI 42.2
== END ==
PROVIDERS: PCP Nurse Practitioner; Visit Provider Nurse Practitioner
DX: R42 Dizziness and giddiness (principal); I10 Essential (primary) hypertension; R06.00 Dyspnea, unspecified
CPT/HCPCS: 80053; 83880

== ENCOUNTER 2023-03-14 16:31 | Emergency (ER) | payer MEDICAID, SELFPAY ==
[2020-12-04 16:35] VITALS: BP 145/86; BMI 42.2
[2023-03-14 16:45] VITALS: BP 128/83; PULSE 114; RESP 18; TEMP 36.6; O2SAT 100; BMI 50.5
[2023-03-14 16:53] VITALS: PULSE 106
[2023-03-14 17:48] LABS: Basophils # 0.1 10^3/uL (0.0-0.1); Basophils % 0.6 %; Eosinophils # 0.1 10^3/uL (0.0-0.8); Hematocrit 41.9 % (36-47); Lymphocytes # 4.2 10^3/uL (0.8-4.8); Lymphocytes % 39.1 %; Mean Corpuscular HGB Conc 30.8 g/dL (30-55); Mean Corpuscular Hemoglobin 26.2 pg (27-33); Mean Platelet Volume 9.8 fL (7.4-10.4); Monocytes # 0.8 10^3/uL (0.2-0.9); Monocytes % 7.6 %; Neutrophils # 5.54 10^3/uL (1.8-7.7); Neutrophils % 51.3 %; Nucleated Red Blood Cells % 0 %; Platelet Count 377 10^3/cmm (157-399); Red Blood Count 4.93 10^6/uL (3.85-5.65); Red Cell Distribution Width 14.8 % (12.1-15.1)
[2023-03-14 17:59] LABS: Alanine Aminotransferase 20 U/L (0-33); Albumin Level 4.6 g/dL (3.5-5.2); Alkaline Phosphatase 89 U/L (35-105); Anion Gap 16.9 (5-19); Aspartate Amino Transferase 14 U/L (0-32); Blood Urea Nitrogen 8 mg/dL (6-20); Calcium 9.6 mg/dL (8.5-10.5); Carbon Dioxide 24 mmol/L (22-29); Chloride 103 mmol/L (98-107); Globulin 3.2 g/dL (1.3-4.6); Glomerular Filtration Rate 123.9 mL/min (90-130); Glucose 105 mg/dL (65-115); Lipase 38 U/L (13-60); Magnesium 1.9 mg/dL (1.7-2.3); Osmolality Calculated 289 mOsm/kg (285-295); Potassium 3.9 mmol/L (3.5-5.1); Sodium 140 mmol/L (136-145); Total Bilirubin 0.2 mg/dL (0.15-1.2); Total Protein 7.8 g/dL (6.6-8.7)
--- NOTE | 2023-03-14 21:01 | ED_ITS ---
HPI - Nausea/Vomiting/Diarrhea General: Chief complaint: Nausea/Vomiting/Diarrhea Stated complaint: abd pain, Vomiting Time Seen by Provider: 03/14/23 20:02 History of Present Illness: Patient is a 22-year-old female who presents to the emergency department with complaints of nausea and vomiting x 2 months. Patient reports when it began, 2 months ago, she had intermittent episodes of nausea and vomiting. Symptoms have progressed to daily and even more frequently?happening several times a day. Patient has been evaluated by her primary care provider and an ultrasound has been arranged for this Thursday. Patient had no nausea and vomiting while here in the emergency department. Patient denies diarrhea Denies constipation Denies fever or chills Review of Systems General: Reports: 10 or more systems reviewed and unremarkable except in HPI and below PFSH ED PFSH: Medical History Bipolar 2 disorder Borderline personality disorder Chronic migraine Major depressive disorder, recurrent severe without psychotic features Not on any medication during the . She follows up with therapy every 1 to 2 weeks with Maribell Menjivar from [facility] Major depressive disorder, recurrent, in full remission with anxious distress Medication management Nicotine dependence Poor compliance with medication Surgical History History of section, low transverse (09/27/19) PLTCS. Dx: Arrest of dilation. Performed by Dr. Lockwood at [facility] [place]. History of tonsillectomy Family History Unknown Breast cancer Grandmother Hyperlipidemia Maternal Hypertension Maternal Diabetes Maternal Mother Diabetes Grandfather Diabetes Maternal Stroke Maternal Other CAD (coronary artery disease) Cancer Social History Smoking and tobacco/nicotine status: current every day tobacco/nicotine user (Half a pack a day) e-cigarettes E-Cigarette Details: vaporizer device and with nicotine Quit status (tobacco/nicotine): has tried quititng Second hand smoke exposure: No Alcohol intake: never Substance/Drug Use: never Adopted: No Caregiver/support person: No Lives independently: Yes Household members: significant other and children Housing: House Marital status: Single Number of children: 1 Number of grandchildren: 0 Highest education level completed: High School Graduate Current occupational status: unemployed Pets and animals: No Leisure activites: music Sexually active: Yes Do you think of yourself as: Straight/Heterosexual Current gender identity: Female Jasmin/Restoration: None Special jasmin needs: No Agree to transfusion: Yes Female Reproductive History: Para: 1 Spontaneous abortions: Yes (recent) Physical Exam Const: COMMON NORMALS: no acute distress, patient oriented x3 and alert GEN ERAL APPEARANCE: cooperative ORIENTATION/CONSCIOUSNESS: Yes awake, Yes oriented to person, Yes oriented to place and Yes oriented to time HENMT: COMMON NORMALS: normocephalic and atraumatic HEAD & SCALP: normocephalic and atraumatic FACE & SINUS: normal facial exam MOUTH: Normal oral and palatal mucosa present THROAT: posterior oropharynx normal Eye: COMMON NORMALS: Equal, round and reactive pupils present, EOMs intact bilaterally, conjunctivae normal and no scleral icterus GENERAL EYE: appearance normal, both eyes and all related structures ALIGNMENT: Yes alignment normal PERIORBITAL: periorbital findings normal CONJUNCTIVA: Yes conjunctivae normal PUPIL: Yes Equal, round and reactive pupils present Neck/C-Spine: COMMON NORMALS: full ROM GENERAL: Yes normal visual inspection Lymph: LYMPHATIC: no lymphadenopathy noted Chest: COMMONS NORMALS: normal inspection of the chest Breast/axilla inspection: Yes no chest deformity, asymmetry, normal contours, no nodules, masses, tenderness Resp: COMMON NORMALS: normal respiratory effort, No retractions, No use of accessory muscles and clear to auscultation bilaterally EFFORT & INSPECTION: Yes able to speak in complete sentences and Yes symmetric chest movement AUSCULTATION: clear to auscultation bilaterally Cardio: COMMON NORMALS: regular rate, regular rhythm and Peripheral pulses 2+ throughout RATE: regular rate RHYTHM: regular rhythm PERIPHERAL PULSES: Peripheral pulses 2+ throughout GI: COMMON NORMALS: Normal to inspection, nondistended, normoactive bowel sounds present, Soft to palpation, non-tender and No hepatosplenomegaly present INSPECTION: Yes normal to inspection AUSCULTATION: Yes normoactive bowel sounds PALPATION: Yes Soft to palpation and Yes No hepatosplenomegaly present RECTAL EXAM: deferred Extremity: COMMON NORMALS: normal to inspection GENERAL: Yes normal exam except as noted Neuro: COMMON NORMALS: patient oriented x3 SENSORIUM/ORIENTATION: Yes alert, Yes oriented to person, Yes oriented to place and Yes oriented to time CRANIAL NERVES: Yes CN normal except as noted Psych: COMMON NORMALS: mental status grossly normal, Normal thought process present, cooperative, activity/motor behavior normal, denies homicidal ideation and denies suicidal ideation THOUGHT PROCESS: Normal thought process present Skin: COMMON NORMALS: no rashes or lesions noted, no wounds and turgor normal GENERAL SKIN EXAM: no rashes or lesions noted and turgor normal Course Vital Signs: Vital signs: Vital Signs Temperature 97.9 F 03/14/23 16:45 Pulse Rate 106 H 03/14/23 16:53 Respiratory Rate 18 03/14/23 16:45 Blood Pressure 128/83 03/14/23 16:45 Pulse Oximetry 100 03/14/23 16:45 Oxygen Delivery Me thod Room Air 03/14/23 16:45 MDM - Nausea/Vomiting/Diarrhea Medical Decision Making Patient evaluated in the emergency department for nausea and vomiting that is chronic. Patient has regular follow-up scheduled and has an ultrasound scheduled for this Thursday. Patient has been provided prescriptions by primary care but has not picked them up. Patient did undergo a CBC and chemistry panel. Her lipase is normal, she has no leukocytosis, anemias, thrombocytopenia, electrolyte abnormalities or re nal/hepatic dysfunction. Patient has been instructed to follow-up with primary care doctor Follow-up with ultrasound as planned Return to the emergency department as needed for new, concerning, worsening symptoms Lab Data 03/14/23 17:32 03/14/23 17:32 Laboratory Results WBC 10.80 10^3/uL (3.29-11.43) 03/14/23 17: RBC 4.93 10^6/uL (3.85-5.65) 03/14/23 17:32 Hgb 12.90 g/dL (11.27-16.99) 03/14/23 17:32 Hct 41.9 % (36-47) 03/14/23 17:32 MCV 85.0 fl (85-98) 03/14/23 17:32 MCH 26.2 pg (27-33) L 03/14/23 17:32 MCHC 30.8 g/dL (30-55) 03/14/23 17:32 RDW 14.8 % (12.1-15.1) 03/14/23 17:32 Plt Count 377 10^3/cmm (157-399) 03/14/23 17: MPV 9.8 fL (7.4-10.4) 03/14/23 17:32 Neut % (Auto) 51.3 % 03/14/23 17:32 Lymph % (Auto) 39.1 % 03/14/23 17:32 Glascock % (Auto) 7.6 % 03/14/23 17: Eos % (Auto) 1.0 % 03/14/23 17: Baso % (Auto) 0.6 % 03/14/23 17: Neut # (Auto) 5.54 10^3/uL (1.8-7.7) 03/14/23 17: Lymph # (Auto) 4.2 10^3/uL (0.8-4.8) 03/14/23 17: Glascock # (Auto) 0.8 10^3/uL (0.2-0.9) 03/14/23 17: Eos # (Auto) 0.1 10^3/uL (0.0-0.8) 03/14/23 17: Baso # (Auto) 0.1 10^3/uL (0.0-0.1) 03/14/23 17: Nucleated RBC % (auto) 0 % 03/14/23 17: Nucleated RBCs # 0.0 /100WBC 03/14/23 17:32 Sodium 140 mmol/L (136-145) 03/14/23 17:32 Potassium 3.9 mmol/L (3.5-5.1) 03/14/23 17: Chloride 103 mmol/L (98-107) 03/14/23 17:32 Carbon Dioxide 24 mmol/L (22-29) 03/14/23 17:32 Anion Gap 16.9 (5-19) 03/14/23 17:32 BUN 8 mg/dL (6-20) 03/14/23 17:32 Creatinine 0.6 mg/dL (0.5-0.9) 03/14/23 17:32 GFR Calculation 123.9 mL/min (90-130) 03/14/23 17:32 Glucose 105 mg/dL (65-115) 03/14/23 17:32 Calculated Osmolality 289 mOsm/kg (285-295) 03/14/23 17:32 Calcium 9.6 mg/dL (8.5-10.5) 03/14/23 17:32 Magnesium 1.9 mg/dL (1.7-2.3) 03/14/23 17:32 Total Bilirubin 0.2 mg/dL (0.15-1.2) 03/14/23 17:32 AST 14 U/L (0-32) 03/14/23 17:32 ALT 20 U/L (0-33) 03/14/23 17:32 Alkaline Phosphatase 89 U/L (35-105) 03/14/23 17:32 Total Protein 7.8 g/dL (6.6-8.7) 03/14/23 17:32 Albumin 4.6 g/dL (3.5-5.2) 03/14/23 17:32 Globulin 3.2 g/dL (1.3-4.6) 03/14/23 17:32 Lipase 38 U/L (13-60) 03/14/23 17:32 No radiology studies performed this visit Discharge Plan Discharge Patient Disposition: Home Clinical Impression: Nausea & vomiting Condition: Stable Prescriptions: No Action meclizine 12.5 mg tablet 12.5 mg PO BID PRN (Reason: dizziness) Qty: 30 0RF Abilify Maintena 400 mg suspension,extended rel recon 400 mg IM Q28D Qty: 1 0RF Rx Instructions: may be given 03/05/23 divalproex [Depakote ER] 500 mg tablet extended release 24 hr 500 mg PO DAILY Qty: 30 0RF doxepin 75 mg capsule 75 mg PO .at bedtime Qty: 30 0RF aripiprazole [Abilify] 10 mg tablet 10 mg PO DAILY PRN (Reason: breakthrough agitation) Qty: 30 0RF trazodone 150 mg tablet 150 mg PO DAILY topiramate 100 mg tablet 25 mg PO DAILY lisinopril 5 mg tablet 5 mg PO DAILY Qty: 30 2RF ondansetron 4 mg tablet,disintegrating 4 mg PO Q6H PRN (Reason: nausea and vomiting) Qty: 20 0RF cyclobenzaprine 10 mg Tablet 10 mg PO TID PRN (Reason: muscle relaxant) Discharge Orders: Discharge ED (Routine); Ordered 03/14/23 Ordered By: Kimberley Bullard Referrals: Dolores Moralez FNP [Primary Care Provider] - Discharge Diet: Advance as tolerated Discharge Activity: Resume usual activity Patient Instructions: Acute Nausea and Vomiting (ED), Pain Management Activity Restrictions/Additional Instructions: Please follow-up with your primary care doctor Coding Level of Care Code ED Supervisor Record Press for Peggy Corea
[2023-03-14] MEDS: ondansetron 4 MG Tablet PO (21:12)
[2023-03-14 21:16] VITALS: BP 130/88; PULSE 98; O2SAT 99
== END 2023-03-14 21:17 | disposition home or self-care (01) ==
PROVIDERS: Emergency Medicine; Emergency Provider Nurse Practitioner; PCP Nurse Practitioner
DX: R11.2 Nausea with vomiting, unspecified (principal); F17.210 Nicotine dependence, cigarettes, uncomplicated; F17.290 Nicotine dependence, other tobacco product, uncomplicated
CPT/HCPCS: 80053; 83690; 83735; 85025; 99283; Q0162

== ENCOUNTER 2023-03-18 06:57 | Outpatient (CLI) | payer MEDICAID, SELFPAY ==
[2020-12-04 16:35] VITALS: BP 145/86; BMI 42.2
--- NOTE | 2023-03-18 07:30 | US_ITS ---
WS: [id number] Complete ABDOMINAL ULTRASOUND HISTORY: R11.2 - Nausea with vomiting, unspecified COMPARISON: None available. Liver: 19.0 cm in length. Enlarged liver with mild diffuse hepatic steatosis. No mass or bile duct di latation. Portal Vein: Normal hepatopetal flow with monophasic waveform. Gallbladder: Normally distended gallbladder with no stones or wall thickening. CBD: 0.5 cm Pancreas: Normal size and echogenicity. Right kidney: 12.6 cm x 5.3 x 4.6 cm. Cortex:1.1 cm. Normal size and echogenicity. No hydronephrosis or mass. Left kidney: 12.2 cm x 5.9 cm x 4.4 cm. Cortex: 1.1 cm. Normal size and echogenicity. No hydronephrosis or mass. Spleen: Normal. Aorta and IVC: Unremarkable abdominal aorta and IVC. Impression: 1. Normal gallbladder. 2. Mild hepatic steatosis and hepatomegaly. 3. No renal obstruction.
== END 2023-03-18 06:58 | disposition home or self-care (01) ==
LOC: RAD 06:58
PROVIDERS: PCP Nurse Practitioner; Visit Provider Nurse Practitioner
DX: R11.2 Nausea with vomiting, unspecified (principal); K76.0 Fatty (change of) liver, not elsewhere classified; R16.0 Hepatomegaly, not elsewhere classified
CPT/HCPCS: 76700

== ENCOUNTER → 2023-03-20 17:50 | Outpatient (BNVA) | payer MEDICAID, SELFPAY ==
[2020-12-04 16:35] VITALS: BP 145/86; BMI 42.2
== END ==
PROVIDERS: PCP Nurse Practitioner; Visit Provider Nurse Practitioner
DX: R11.2 Nausea with vomiting, unspecified (principal); N39.0 Urinary tract infection, site not specified; R31.9 Hematuria, unspecified; R11.14 Bilious vomiting
CPT/HCPCS: 81000; 87086

== ENCOUNTER 2023-04-02 06:19 | Day surgery (SDC) | payer MEDICAID, SELFPAY ==
[2020-12-04 16:35] VITALS: BP 145/86; BMI 42.2
--- NOTE | 2023-04-02 06:13 | W.PM.OPSUD ---
Surgery/Procedure H&P Update DATE OF PROCEDURE: April 02, 2023 DATE H&P PERFORMED: 11/27/22 H&P UPDATE INFORMATION: I have reviewed H&P completed within last 30 days, I have examined patient prior to procedure, No changes to prior documentation and H&P is in [facility] [place] EMR on date indicated PLANNED PROCEDURE: Operation Date: 04/02/23 07:40 Proposed Procedures p [id number] egd R11.2(Not Applicable) - Jorge A Carlson MD
[2023-04-02 06:33] VITALS: BP 127/71; PULSE 94; RESP 18; TEMP 36.6; O2SAT 96; BMI 50.5
[2023-04-02] MEDS: sodium chloride 0.9% 1,000 ML 30 ML IV (06:45)
[2023-04-02 06:52] LABS: OR HCG Qualitative Urine Negative (Negative)
--- NOTE | 2023-04-02 06:53 | P.ANESASSM_ITS ---
Pre-Anesthetic Assessment Height/Weight: Height 1.6 m Weight 129.274 kg Temp Pulse Resp BP Pulse Ox O2 Del Method 97.8 F 94 18 127/71 96 Room Air 04/02/23 06:33 04/02/23 06:33 04/02/23 06:33 04/02/23 06:33 04/02/23 06:33 04/02/23 06:33 Operation Date: 04/02/23 07:40 Proposed Procedures p [id number] egd R11.2(Not Applicable) - Jorge A Carlson MD Familial anesthetic complications: None Was Beta Rachael taken within 24 hours: N/A Was Clonidine taken within 24 hours: N/A Last intake: Intake Last Liquid Date 04/01/23 Last Liquid Time 20:00 Last Solid Date 04/01/23 Last Solid Time 18:30 Social No alcohol and No tobacco Exam alert, oriented x 3, clear to auscultation bilaterally and regular rate & rhythm Airway Mallampati: Class III Dentition: other (pulled) CV/HEM Hypertension GI Gastroesophageal Reflux Disease Metabolic Morbid Obesity Anesthetic Plan ASA status: 2 Anesthesia: MAC Risk of > 500 ml blood loss (7ml/kg in children): No Medications/Allergies Home Medications Medication Instructions Recorded Confirmed Last Taken Type cyclobenzaprine 10 mg tablet 10 mg PO TID PRN muscle relaxant 11/26/22 04/02/23 04/01/23 History topiramate 100 mg tablet 25 mg PO DAILY 01/13/23 04/02/23 04/01/23 History trazodone 150 mg tablet 150 mg PO DAILY 01/13/23 04/02/23 04/01/23 History aripiprazole 10 mg tablet (Abilify) 10 mg PO DAILY PRN breakthrough 02/05/23 04/02/23 04/01/23 Rx agitation #30 tabs aripiprazole 400 mg intramuscular 400 mg IM Q28D #1 ea 02/05/23 04/02/23 04/01/23 Rx suspension,extended release (Abilify Maintena) divalproex 500 mg tablet,extended 500 mg PO DAILY #30 tabs 02/05/23 04/02/23 04/01/23 Rx release 24 hr (Depakote ER) doxepin 75 mg capsule 75 mg PO .at bedtime #30 caps 02/05/23 04/02/2304/01/23 Rx lisinopril 5 mg tablet 5 mg PO DAILY #30 tabs 02/25/23 04/02/23 04/01/23 Rx meclizine 12.5 mg tablet 12.5 mg PO BID PRN dizziness #30 03/04/23 04/02/23 04/01/23 Rx tabs omeprazole 40 mg capsule,delayed 40 mg PO DAILY #30 caps 03/18/23 04/02/23 04/01/23 Rx release ciprofloxacin HCl 500 mg tablet 500 mg PO BID 7 days #14 tabs 03/20/23 04/02/23 04/01/23 Rx Allergies Allergy/AdvReac Type Severity Reaction Status Date / Time No Known Allergies Allergy Verified 04/02/23 06:30 Current Medications Generic Name Dose Route Start Last Admin Trade Name Freq PRN Reason Stop Dose Admin Sodium Chloride 1,000 mls @ 30 mls/hr 04/02/23 06:30 04/02/23 06:45 Sodium Chloride 0.9% IV 30 mls/hr .Q24H DANY Administration PFSH Anesthesia Medical History Poor compliance with medication Bipolar 2 disorder Nicotine dependence Medication management Major depressive disorder, recurrent, in full remission with anxious distress Borderline personality disorder Major depressive disorder, recurrent severe without psychotic features Not on any medication during the . She follows up with therapy every 1 to 2 weeks with Maribell Menjivar from [facility] clinic Chronic migraine Surgical History (Updated 03/23/23 @ 13:20 by Noelle Weller, CT) History of section, low transverse (09/27/19) PLTCS. Dx: Arrest of dilation. [place] [facility] [place] of tonsillectomy Family History Unknown Breast cancer Grandmother Hyperlipidemia Maternal Hypertension Maternal Diabetes Maternal Mother Diabetes Grandfather Diabetes Maternal Stroke Maternal Other CAD (coronary artery disease) Cancer Social History Smoking and tobacco/nicotine status: current every day tobacco/nicotine user (Half a pack a day) e-cigarettes E-Cigarette Details: vaporizer device and with nicotine Quit status (tobacco/nicotine): has tried quititng Second hand smoke exposure: No Alcohol intake: never Substance/Drug Use: never Adopted: No Caregiver/support person: No Lives independently: Yes Household members: significant other and children Housing: House Marital status: Single Number of children: 1 Number of grandchildren: 0 Highest education level completed: High School Graduate Current occupational status: unemployed Pets and animals: No Leisure activites: music Sexually active: Yes Do you think of yourself as: Straight/Heterosexual Current gender identity: Female Jasmin/Pentecostalism: None Special jasmin needs: No Agree to transfusion: Yes Female Reproductive History Para: 1 Spontaneous abortions: Yes (recent) Data Anesthesia Cardiac Studies: No Data to Display
[2023-04-02 07:51] VITALS: BP 118/73; PULSE 80; RESP 16; TEMP 36.4; O2SAT 95
[2023-04-02 08:01] VITALS: BP 106/63; PULSE 79; RESP 16; O2SAT 98
--- NOTE | 2023-04-02 13:11 | ANE.PACU2 ---
Inpatient post-anesthesia follow up: Airway intact: Yes Vital signs: Temperature 97.5 F Pulse Rate 79 Respiratory Rate 16 Blood Pressure 106/63 Pulse Oximetry 98 Oxygen Delivery Me thod Room Air Oxygen Flow Rate 3 Fraction of Inspir ed Oxygen Hydration adequate: Yes Nausea and vomiting: No Pain level: 1 Mental status: Baseline
== END 2023-04-02 08:20 | disposition home or self-care (01) ==
PROVIDERS: Anesthesiology; PCP Nurse Practitioner; Visit Provider Surgery
PROC: 0DJ08ZZ Inspection of Upper Intestinal Tract, Via Natural or Artificial Opening Endoscopic (ICD-10-PCS; CPT 43235; principal; 2023-04-02 07:40)
DX: R11.2 Nausea with vomiting, unspecified (principal); K29.50 Unspecified chronic gastritis without bleeding; I10 Essential (primary) hypertension; E66.01 Morbid (severe) obesity due to excess calories; Z68.43 Body mass index [BMI] 50.0-59.9, adult; K21.9 Gastro-esophageal reflux disease without esophagitis; F17.290 Nicotine dependence, other tobacco product, uncomplicated
CPT/HCPCS: 43239; 81025; 84703; 88305; 88342; J2704; J7030

== ENCOUNTER → 2023-04-23 14:14 | Outpatient (BNVA) | payer MEDICAID, SELFPAY ==
[2020-12-04 16:35] VITALS: BP 145/86; BMI 42.2
== END ==
PROVIDERS: PCP Nurse Practitioner; Visit Provider Surgery
DX: Z09 Encounter for follow-up examination after completed treatment for conditions other than malignant neoplasm (principal)
CPT/HCPCS: 99213

== ENCOUNTER 2023-04-28 10:45 | Inpatient (IN) | payer MEDICAID, SELFPAY ==
[2020-12-04 16:35] VITALS: BP 145/86; BMI 42.2
[2023-04-28 10:50] VITALS: BP 132/82; PULSE 93; RESP 16; TEMP 36.7; O2SAT 96; BMI 51.2
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
[2023-04-28 11:05] LABS: Basophils # 0.1 10^3/uL (0.0-0.1); Basophils % 0.9 %; Eosinophils # 0.1 10^3/uL (0.0-0.8); Hematocrit 40.9 % (36-47); Lymphocytes # 2.7 10^3/uL (0.8-4.8); Lymphocytes % 33.4 %; Mean Corpuscular Hemoglobin 26.8 pg (27-33); Mean Corpuscular Volume 83.8 fl (85-98); Mean Platelet Volume 10.1 fL (7.4-10.4); Monocytes # 0.5 10^3/uL (0.2-0.9); Monocytes % 6.7 %; Neutrophils % 57.7 %; Nucleated Red Blood Cells % 0 %; Platelet Count 410 10^3/cmm (157-399); Red Blood Count 4.88 10^6/uL (3.85-5.65); Red Cell Distribution Width 14.1 % (12.1-15.1); White Blood Count 7.96 10^3/uL (3.29-11.43)
[2023-04-28 11:23] LABS: Alanine Aminotransferase 17 U/L (0-33); Albumin Level 4.4 g/dL (3.5-5.2); Alkaline Phosphatase 83 U/L (35-105); Aspartate Amino Transferase 12 U/L (0-32); Blood Urea Nitrogen 9 mg/dL (6-20); Calcium 9.4 mg/dL (8.5-10.5); Carbon Dioxide 25 mmol/L (22-29); Chloride 100 mmol/L (98-107); Globulin 3.4 g/dL (1.3-4.6); Glomerular Filtration Rate 123.9 mL/min (90-130); Glucose 90 mg/dL (65-115); Osmolality Calculated 282 mOsm/kg (285-295); Sodium 137 mmol/L (136-145); Total Bilirubin 0.3 mg/dL (0.15-1.2); Total Protein 7.8 g/dL (6.6-8.7)
[2023-04-28 11:28] LABS: HCG, Serum Qual Negative (Negative)
[2023-04-28 11:32] LABS: Acetaminophen < 5.0 ug/mL (10-30); Alcohol Level < 10 mg/dL (0-10); Salicylate < 0.3 mg/dL (3-10)
[2023-04-28 11:55] LABS: Amphetamines Screen Urine Negative (Negative); Barbiturates Screen Urine Negative (Negative); Benzodiazepines Screen Urine Negative (Negative); Cocaine Screen Urine Negative (Negative); Opiate Screen Urine Negative (Negative); PCP Screen Urine Negative (Negative); THC Screen Urine Negative (Negative)
[2023-04-28 12:23] VITALS: RESP 18; O2SAT 99
[2023-04-28 12:41] VITALS: BP 130/84; PULSE 87; RESP 14; TEMP 36.8; O2SAT 98
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
[2023-04-28 14:00] VITALS: BP 130/72; PULSE 88; RESP 15; TEMP 36.8; O2SAT 98
[2023-04-28 20:10] VITALS: BP 115/73; PULSE 91; RESP 16; O2SAT 99
[2023-04-29 06:00] VITALS: BP 108/66; PULSE 82; RESP 16; O2SAT 97
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
[2023-04-29] MEDS: lisinopril 5 mg Tablet PO (09:11)
[2023-04-29] MEDS: acetaminophen 325 mg Tablet 650 MG PO (12:37)
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
[2023-04-29 14:29] VITALS: BP 108/66; PULSE 82; RESP 16; O2SAT 97
--- NOTE | 2023-04-29 14:29 | PC.NURSE ---
Patient requesting to leave AMA. Dr. Bland notified and RN, Mely Cruz, educated patient on her choice to leave AMA and why it would be best to stay to receive treatment. Patient persisted that she would like to leave. Forms were signed and patient now awaiting ride and discharge papers.
== END 2023-04-29 15:11 | disposition home or self-care (01) | DRG 885 ==
LOC: ER 11:44 → NP 12:16
PROVIDERS: Admitting Provider Psychiatry & Neurology Psychiatry; Emergency Provider Physician Assistant; PCP Nurse Practitioner; Visit Provider Psychiatry & Neurology Psychiatry
DX: F31.81 Bipolar II disorder (principal); R45.851 Suicidal ideations; Z68.43 Body mass index [BMI] 50.0-59.9, adult; F60.3 Borderline personality disorder; F43.10 Post-traumatic stress disorder, unspecified; E66.9 Obesity, unspecified; Z91.148 Patient's other noncompliance with medication regimen for other reason; Z81.8 Family history of other mental and behavioral disorders
CPT/HCPCS: 36415; 80053; 80306; 80307; 84703; 85025; 97165; 99285

== ENCOUNTER → 2023-05-15 09:35 | Outpatient (BNVA) | payer MEDICAID, SELFPAY ==
[2020-12-04 16:35] VITALS: BP 145/86; BMI 42.2
== END ==
PROVIDERS: PCP Nurse Practitioner; Visit Provider Nurse Practitioner
DX: R20.0 Anesthesia of skin (principal); R20.2 Paresthesia of skin; R10.9 Unspecified abdominal pain; L65.9 Nonscarring hair loss, unspecified
CPT/HCPCS: 82306; 83036

== ENCOUNTER 2023-05-29 07:45 | Outpatient (CLI) | payer MEDICAID, SELFPAY ==
[2020-12-04 16:35] VITALS: BP 145/86; BMI 42.2
--- NOTE | 2023-05-29 07:56 | NM_ITS ---
WS: [id number] NUCLEAR MEDICINE HIDA SCAN CLINICAL INFORMATION: ABDOMINAL PAIN, NAUSEA AND VOMITING DIARRHEA TECHNIQUE: Following intravenous administration of 7.2 mCi of technetium 99m mebrofenin, images of th e abdomen were obtained over the course of 60 minutes. Next, gallbladder ejection fraction was determ ined by obtaining preprandial and one-hour postprandial images of the gallbladder following oral fiordaliza stion of Ensure. COMPARISON: None. FINDINGS: Normal hepatic uptake at 5 minutes. Hepatomegaly. Normal hepatic excretion. Bladder is visualized by 5 minutes. No evidence of acute cholecystitis. Normal common bile duct and s mall bowel activity. Gallbladder ejection fraction 88% within normal limits. No evidence of chronic cholecystitis. IMPRESSION: 1. No evidence of acute or chronic cholecystitis. 2. Gallbladder ejection fraction 88% within normal limit
== END 2023-05-29 07:46 | disposition home or self-care (01) ==
LOC: RAD 07:47
PROVIDERS: PCP Nurse Practitioner; Visit Provider Nurse Practitioner
DX: R10.9 Unspecified abdominal pain (principal); R11.2 Nausea with vomiting, unspecified; R19.7 Diarrhea, unspecified
CPT/HCPCS: 78227; 82306; 83036; A9537

== ENCOUNTER → 2023-06-02 14:44 | Outpatient (BNVA) | payer MEDICAID, SELFPAY ==
[2020-12-04 16:35] VITALS: BP 145/86; BMI 42.2
== END ==
PROVIDERS: PCP Nurse Practitioner; Visit Provider Nurse Practitioner
DX: N39.0 Urinary tract infection, site not specified (principal); F31.81 Bipolar II disorder; F60.3 Borderline personality disorder
CPT/HCPCS: 81000; 87086

== ENCOUNTER → 2023-07-20 10:37 | Outpatient (BNVA) | payer SELFPAY ==
[2020-12-04 16:35] VITALS: BP 145/86; BMI 42.2
== END ==
PROVIDERS: PCP Nurse Practitioner; Visit Provider Nurse Practitioner
DX: J02.9 Acute pharyngitis, unspecified (principal)
CPT/HCPCS: 87426; 87880

== ENCOUNTER → 2023-08-03 15:44 | Outpatient (BNVA) | payer SELFPAY ==
[2020-12-04 16:35] VITALS: BP 145/86; BMI 42.2
== END ==
PROVIDERS: PCP Nurse Practitioner; Visit Provider Nurse Practitioner
DX: J02.9 Acute pharyngitis, unspecified (principal)
CPT/HCPCS: 87070

== ENCOUNTER → 2023-11-16 12:21 | Outpatient (BNVA) | payer OTHER, SELFPAY ==
[2020-12-04 16:35] VITALS: BP 145/86; BMI 42.2
== END ==
PROVIDERS: PCP Nurse Practitioner; Visit Provider Psychiatry & Neurology Psychiatry
DX: Z79.899 Other long term (current) drug therapy (principal); F31.81 Bipolar II disorder; F43.10 Post-traumatic stress disorder, unspecified; F33.9 Major depressive disorder, recurrent, unspecified
CPT/HCPCS: 80061; 83036